=== PATIENT | female | born 1950 | race Caucasian/White ===

== ENCOUNTER → 2018-05-31 08:51 | Outpatient (CLI) | payer MEDICARE, OTHER, SELFPAY ==
[2018-05-31 10:11] LABS: BUN Creatinine Ratio 25.7 (6-22); Blood Urea Nitrogen 18 mg/dL (7-17); Calcium 9.3 mg/dL (8.4-10.2); Carbon Dioxide 30 mmol/L (22-32); Chloride 104 mmol/L (98-107); Cholesterol 217 mg/dL (140-199); Estimated Glomerular Filt Rate > 60.0 mL/min (>60); Glucose 102 mg/dL (80-110); HDL Cholesterol 77 mg/dL (40-60); HEMOLYSIS < 15 (0-50); LDL Cholesterol Calculated 126 mg/dL (<100); Potassium 4.7 mmol/L (3.4-5.1); Sodium 144 mmol/L (137-145); Triglycerides 70 mg/dL (35-150)
== END ==
PROVIDERS: PCP Family Medicine; Visit Provider Family Medicine
DX: R73.03 Prediabetes (principal); Z13.220 Encounter for screening for lipoid disorders; Z13.6 Encounter for screening for cardiovascular disorders
CPT/HCPCS: 36415; 80048; 80061

== ENCOUNTER → 2018-06-14 09:46 | Outpatient (CLI) | payer MEDICARE, OTHER, SELFPAY ==
--- NOTE | 2018-06-14 | DI.MG.S_ITS ---
BILATERAL DIGITAL SCREENING MAMMOGRAM 3D/2D WITH CAD: 06/14/2018 CLINICAL: Routine screening. Comparison is made to exams dated: 05/20/2017 mammogram, 05/15/2016 mammogram, and 05/09/2015 mammogram - [facility]. There are scattered fibroglandular elements in both breasts. Current study was also evaluated with a Computer Aided Detection (CAD) system. No significant masses, calcifications, or other findings are seen in either breast. There has been no significant interval change. IMPRESSION: NEGATIVE There is no mammographic evidence of malignancy. A 1 year screening mammogram is recommended. This exam was interpreted at Station ID: [id number]. NOTE: For mammograms, a report in lay terms will be sent to the patient. Approximately 15% of breast malignancies will not be visualized mammographically. In the management of a palpable breast mass, a negative mammogram must not discourage biopsy of a clinically suspicious lesion. Electronically Signed By: Stephen darling/jyothi:06/15/2018 08:13:44 letter sent: Normal Exam ACR BI-RADS Category 1: Negative 3341F
== END ==
PROVIDERS: Family Provider Family Medicine; PCP Family Medicine; Visit Provider Family Medicine
DX: Z12.31 Encounter for screening mammogram for malignant neoplasm of breast (principal)
CPT/HCPCS: 77063; 77067

== ENCOUNTER → 2019-01-09 20:02 | Outpatient (CLI) | payer MEDICARE, OTHER, SELFPAY ==
--- NOTE | 2019-01-09 20:06 | DI.MRI.S_ITS ---
PROCEDURE: MR ANKLE RT WO CON INDICATIONS: RIGHT ankle pain, suspect ligament injury or tendon tear TECHNIQUE: Noncontrast sagittal T1 spin echo and T2 fast spin echo with fat saturation, axial proton density fast spin echo and T2 fast spin echo with fat saturation, coronal T1 spin echo and T2 fast spin echo with fat saturation through the ankle/hindfoot. COMPARISON: None. FINDINGS: Image quality: Excellent. Bones and joints: No bone marrow contusions or fractures. Mild osteoarthritic changes are noted in ankle joints, and visualized midfoot and hindfoot joints. No hindfoot coalitions. No osteochondral injuries of the talar dome. No small amount of fluid within tibiotalar joint and subtalar joint is seen. No gross intra-articular loose body. Soft tissue swelling around ankle joint is seen particularly over lateral malleolus. Medial structures: The posterior tibialis, flexor digitorum longus, and flexor hallucis longus tendons are intact. The posterior tibial neurovascular bundle appears normal within the tarsal tunnel, without extrinsic mass effect. The deep layer (anterior and posterior tibiotalar ligaments) and superficial layer (tibionavicular, tibiospring, and tibiocalcaneal ligaments) of the deltoid ligament appear normal. There is suggestion of sprain and low-grade intrasubstance partial-thickness tear involving spring ligament complex. Lateral structures: There is thickening of anterior and posterior talofibular ligaments suggestive of ligamentous sprain. The calcaneofibular ligament appears intact. More superiorly, the anterior and posterior tibiofibular ligaments appear intact, as is the intermalleolar ligament. The tibiofibular syndesmosis is normal in width at 2 mm or less. The peroneus longus and brevis tendons demonstrate normal location and morphology. Adjacent bony peroneal tubercle and retrotrochlear prominence are normal in size. The sinus tarsi demonstrates normal fatty signal, without edema, fibrosis, or cyst formation. Visualized sinus tarsi components (cervical ligament, interosseous talocalcaneal ligament, roots of the inferior extensor retinaculum) appear normal. The calcaneonavicular and calcaneocuboid components of the bifurcate ligament appear intact. The dorsal calcaneocuboid ligament appears intact. Anterior structures: The tibialis anterior and extensor hallucis longus there is suggestion of tenosynovitis involving extensor digitorum longus tendon at the level of the anterior talus and talonavicular joint with thickening of tendon and moderate amount of fluid distending tendon sheaths. No evidence of extensor tendon tear. tendons appear intact. The dorsal talonavicular ligament appears intact. Posterior and plantar structures: Achilles tendon is intact. Medial and lateral bands of the plantar fascia are of normal thickness. No abductor digiti quinti muscle atrophy to suggest Nicole neuropathy. IMPRESSION: 1. Mild to moderate osteophytic changes throughout ankle joints, and visualized midfoot and hindfoot joints. No fracture or dislocation. Small to moderate amount of ankle joint effusion. No gross loose body. 2. Tenosynovitis involving extensor digitorum longus tendon. No evidence of ankle tendon tear. 3. Soft tissue swelling around ankle joint. Suggestion of sprain and low-grade intrasubstance partial-thickness involving spring ligament complex. Suggestion of sprain involving anterior and posterior talofibular ligaments. No full-thickness ligamentous rupture. Dictated by: Gasper Llamas M.D. on 01/10/2019 at 9:15 Approved by: Gasper Llamas M.D. on 01/10/2019 at 9:22
--- NOTE | 2019-01-09 20:06 | DI.MRI.S_ITS ---
PROCEDURE: MR SHOULDER LT WO CON INDICATIONS: shoulder pain, suspect tendon tear TECHNIQUE: Noncontrast oblique coronal T2 fast spin echo with fat saturation, oblique sagittal T1 spin echo and T2 fast spin echo with fat saturation, axial T1 spin echo and T2 fast spin echo with fat saturation through the shoulder. COMPARISON: None. FINDINGS: Image quality: Excellent. Rotator cuff: Tendinosis and low to moderate grade articular and bursal surface partial-thickness tear involving distal supraspinatus at its insertion on greater tuberosity of humeral head is seen extending to musculotendinous junction. Tendinosis and low-grade articular and bursal surface partial-thickness tear involving distal infraspinatus at its insertion the humeral head is also seen. There is tendinosis and low intrasubstance partial-thickness involving distal subscapularis. Sagittal images demonstrate mild supraspinatus muscle atrophy. Bones and bursae: No bone marrow contusions or fractures. Mild to moderate acromioclavicular joint osteoarthritis and mild glenohumeral joint osteoarthritis is seen. No pathologic subacromial-subdeltoid or subcoracoid bursal fluid is present. Capsule and soft tissues: In the absence of intra-articular contrast, there is suggestion of focal superior labral tear at 12 to 1:00 position. The glenohumeral ligaments appear intact. The long head of the biceps tendon demonstrates normal location and morphology. The rotator interval appears normal, without fibrosis. The coracohumeral ligament is normal in thickness. IMPRESSION: 1. Tendinosis and low to moderate grade articular and bursal surface partial-thickness tear involving distal supraspinatus and infraspinatus. Tendinosis and low-grade intrasubstance partial-thickness tear involving distal subscapularis. No full-thickness rotator cuff tendon rupture. Mild supraspinatus muscle atrophy. 2. Mild to moderate acromioclavicular joint and glenohumeral joint osteoarthritis. 3. Suggestion of focal superior anterior labral tear at 12 to 1:00 position. Dictated by: Gasper Llamas M.D. on 01/10/2019 at 8:17 Approved by: Gasper Llamas M.D. on 01/10/2019 at 8:20
== END ==
PROVIDERS: Family Provider Family Medicine; PCP Family Medicine; Visit Provider Family Medicine
DX: M75.112 Incomplete rotator cuff tear or rupture of left shoulder, not specified as traumatic (principal); M25.512 Pain in left shoulder; M19.012 Primary osteoarthritis, left shoulder; M25.571 Pain in right ankle and joints of right foot; M65.871 Other synovitis and tenosynovitis, right ankle and foot; M25.471 Effusion, right ankle; M25.771 Osteophyte, right ankle
CPT/HCPCS: 73221; 73721

== ENCOUNTER → 2019-03-31 08:56 | Outpatient (CLI) | payer MEDICARE, OTHER, SELFPAY ==
[2019-03-31 10:49] LABS: Alanine Aminotransferase 19 IU/L (9-52); Albumin 4.3 g/dL (3.5-5.0); Albumin Globulin Ratio 1.4 (1.0-2.8); Alkaline Phosphatase 59 U/L (38-126); Aspartate Aminotransferase 24 IU/L (14-36); BUN Creatinine Ratio 24.3 (6-22); Bilirubin Total 0.3 mg/dL (0.2-1.3); Blood Urea Nitrogen 17 mg/dL (7-17); Carbon Dioxide 29 mmol/L (22-32); Chloride 104 mmol/L (98-107); Cholesterol 188 mg/dL (140-199); Estimated Glomerular Filt Rate > 60.0 mL/min (>60); Globulin 3.1 g/dL (1.7-4.1); Glucose 95 mg/dL (80-110); HDL Cholesterol 61 mg/dL (40-60); HEMOLYSIS < 15 (0-50); LDL Cholesterol Calculated 117 mg/dL (<100); Potassium 4.7 mmol/L (3.4-5.1); Sodium 141 mmol/L (137-145); Total Protein 7.4 g/dL (6.3-8.2); Triglycerides 52 mg/dL (35-150)
== END ==
PROVIDERS: PCP Family Medicine; Visit Provider Family Medicine
DX: R73.03 Prediabetes (principal); E66.9 Obesity, unspecified
CPT/HCPCS: 36415; 80053; 80061

== ENCOUNTER → 2019-04-18 09:28 | Outpatient (CLI) | payer MEDICARE, OTHER, SELFPAY ==
[2019-04-18 10:16] LABS: Add Manual Diff / Slide Review NO; Basophils Absolute Auto 0 /uL (0-100); Basophils Percent Auto 0.9 % (0-2); Eosinophils Absolute Auto 100 /uL (0-450); Eosinophils Percent Auto 2.2 % (2-4); Hemoglobin 13.1 g/dL (12.0-16.0); Lymphocytes Absolute Auto 1900 /uL (1100-4500); Lymphocytes Percent Auto 37.9 % (25-40); Mean Corpuscular HGB Conc 34.4 % (30-36); Mean Corpuscular Hemoglobin 31.1 PG (26-34); Mean Corpuscular Volume 90.5 fL (80-100); Monocytes Absolute Auto 400 /uL (0-900); Monocytes Percent Auto 8.1 % (3-14); Neutrophils Absolute Auto 2500 /uL (1500-7000); Neutrophils Percent Auto 50.9 % (50-75); Platelet Count 255 X10^3/uL (150-400); Red Cell Distribution Width 14.1 % (11.6-14.8)
[2019-04-18 10:46] LABS: Erythrocyte Sedimentation Rate 31 MM/HR (0-20)
[2019-04-18 11:05] LABS: Vitamin D 25 Hydroxy (D3) 32.1 ng/mL (30.0-100.0)
[2019-04-18 11:29] LABS: C-Reactive Protein Quant < 0.5 mg/dL (<1.0)
[2019-04-18 11:54] LABS: TSH w/ Reflex to FT4 3.83 uIU/mL (0.47-4.68)
[2019-04-18 12:15] LABS: Vitamin B12 511 pg/mL (239-931)
[2019-04-19 14:18] LABS: RPR Screen Nonreactive (Nonreactive)
[2019-04-19 14:59] LABS: Free T3, Triiodothyronine Free 3.59 pg/mL (2.77-5.27); Free T4, Direct Thyroxine 1.01 ng/dL (0.78-2.19)
[2019-04-21 16:34] LABS: Methylmalonic Acid 168 nmol/L (87-318)
[2019-04-22 16:02] LABS: Thyroid Peroxidase Antibodies 2 IU/mL (< 9)
== END ==
PROVIDERS: PCP Family Medicine; Visit Provider Family Medicine
DX: G62.9 Polyneuropathy, unspecified (principal); M79.671 Pain in right foot; R20.8 Other disturbances of skin sensation; R26.9 Unspecified abnormalities of gait and mobility; I10 Essential (primary) hypertension; R94.6 Abnormal results of thyroid function studies; Z13.29 Encounter for screening for other suspected endocrine disorder
CPT/HCPCS: 36415; 82306; 82607; 83090; 83921; 84439; 84443; 84481; 85025; 85651; 86140; 86376; 86592

== ENCOUNTER → 2019-04-20 06:05 | Outpatient (CLI) | payer MEDICARE, OTHER, SELFPAY ==
--- NOTE | 2019-04-20 06:07 | DI.MRI.S_ITS ---
PROCEDURE: MR BRAIN (IAC) WWO CON INDICATIONS: ataxia, difficulty walking backwards, neck pain TECHNIQUE: Noncontrast sagittal T1 spin echo, axial FLAIR, axial gradient echo, axial diffusion and ADC through the brain. Axial thin-slice 3D CISS, coronal TruFISP, axial T1 spin echo with fat saturation through the internal auditory canals. After the administration of contrast, thin slice axial and coronal T1 spin echo with fat saturation through the internal auditory canals, and axial T1 spin echo with fat saturation through the brain. COMPARISON: None. FINDINGS: Image quality: Excellent. Cerebellopontine angles: No cerebellopontine angle masses. Inner ear structures appear normally formed. No suspicious enhancement in the internal auditory canal or along the course of the 7th cranial nerve. CSF spaces: Ventricles are normal in size and shape. No extra-axial fluid collections. Basal cisterns are patent. Brain: No intracranial bleeds or mass effects. Delaney-white matter interface is intact. No abnormal intracranial enhancement. Diffusion weighted images demonstrate no acute ischemic insults. Brainstem appears normal. Normal intravascular flow voids are present. Skull and face: Calvarial marrow signal is normal. Orbits appear normal. Sinuses: Sinuses and mastoids are clear. IMPRESSION: Normal for age, source of current symptoms is not seen. Dictated by: Angel Kaur M.D. on 04/20/2019 at 11:05 Approved by: Angel Kaur M.D. on 04/20/2019 at 11:05
--- NOTE | 2019-04-20 06:07 | DI.MRI.S_ITS ---
PROCEDURE: MR CERVICAL SPINE WO CON INDICATIONS: ataxia, difficulty walking backwards, neck pain TECHNIQUE: Noncontrast sagittal T1 spin echo and T2 fast spin echo, sagittal STIR, foraminal oblique sagittal T2 fast spin echo, and axial gradient echo or T2 fast spin echo through the cervical spine. COMPARISON: None. FINDINGS: Image quality: Excellent. Alignment and Curvature: There is normal bony alignment. Bone Marrow: Marrow demonstrates normal overall signal. Spinal Cord: Visualized spinal cord has normal size and signal. No cerebellar tonsillar herniation. Source of ataxia is not seen. Paraspinous Soft Tissues: No paravertebral masses. Prevertebral soft tissues are normal in thickness. C2-C3: Normal appearance. C3-C4: Normal appearance. C4-C5: Normal appearance. C5-C6: Mild degenerative disc disease, mild to moderate posterior transverse disc bulge effacing CSF from the anterior thecal sac, but not significantly distorting the adjacent anterior cord. The cord itself is not displaced posteriorly within the thecal sac as a result.. C6-C7: Normal appearance. C7-T1: Normal appearance. IMPRESSION: Mild degenerative disc disease producing effacement of CSF from the anterior thecal sac at the C5-6 disc level, without cord distortion or displacement. No intrinsic lesion within the cervical and upper thoracic cord is not found. A source of ataxia is not seen. Dictated by: Angel Kaur M.D. on 04/20/2019 at 11:03 Approved by: Angel Kaur M.D. on 04/20/2019 at 11:04
== END ==
PROVIDERS: PCP Family Medicine; Visit Provider Family Medicine
DX: R27.0 Ataxia, unspecified (principal); M54.2 Cervicalgia; M50.322 Other cervical disc degeneration at C5-C6 level
CPT/HCPCS: 70553; 72141; A9579

== ENCOUNTER → 2019-06-01 10:35 | Outpatient (CLI) | payer MEDICARE, OTHER, SELFPAY | PROVIDERS: PCP Family Medicine; Visit Provider Family Medicine | DX: M79.673 Pain in unspecified foot (principal); R27.0 Ataxia, unspecified | CPT/HCPCS: 95885; 95886; 95909 ==

== ENCOUNTER → 2019-06-12 15:02 | Outpatient (CLI) | payer MEDICARE, OTHER, SELFPAY ==
[2019-06-12 16:22] LABS: Rheumatoid Factor < 8.6 IU/mL (<12.0)
[2019-06-14 16:31] LABS: Anti Thyroglobulin Antibody < 1 IU/mL (< 2); Thyroid Peroxidase Antibodies 1 IU/mL (< 9)
[2019-06-14 19:06] LABS: ANA Screen, IFA Positive (Negative); ANA Titer 1:40 titer (<1:40)
[2019-06-15 11:53] LABS: CCP Antibody (IgG) < 16 Units (< 20)
== END ==
PROVIDERS: PCP Family Medicine; Visit Provider Family Medicine
DX: G62.9 Polyneuropathy, unspecified (principal); M79.671 Pain in right foot; R26.9 Unspecified abnormalities of gait and mobility; E03.9 Hypothyroidism, unspecified
CPT/HCPCS: 36415; 86038; 86200; 86376; 86430; 86800

== ENCOUNTER → 2019-06-19 11:57 | Outpatient (CLI) | payer MEDICARE, OTHER, SELFPAY ==
--- NOTE | 2019-06-19 | DI.MG.S_ITS ---
BILATERAL DIGITAL SCREENING MAMMOGRAM 3D/2D WITH CAD: 06/19/2019 CLINICAL: Routine screening. Comparison is made to exams dated: 06/14/2018 mammogram, 05/20/2017 mammogram, and 05/15/2016 mammogram - [facility]. There are scattered fibroglandular elements in both breasts. Current study was also evaluated with a Computer Aided Detection (CAD) system. No significant masses, calcifications, or other findings are seen in either breast. There has been no significant interval change. IMPRESSION: NEGATIVE There is no mammographic evidence of malignancy. A 1 year screening mammogram is recommended. This exam was interpreted at Station ID: [id number]. NOTE: For mammograms, a report in lay terms will be sent to the patient. Approximately 15% of breast malignancies will not be visualized mammographically. In the management of a palpable breast mass, a negative mammogram must not discourage biopsy of a clinically suspicious lesion. Electronically Signed By: Cedric summers/jyothi:06/19/2019 18:06:28 letter sent: Normal Exam ACR BI-RADS Category 1: Negative 3341F
== END ==
PROVIDERS: PCP Family Medicine; Visit Provider Family Medicine
DX: Z12.31 Encounter for screening mammogram for malignant neoplasm of breast (principal)
CPT/HCPCS: 77063; 77067

== ENCOUNTER → 2019-06-26 14:46 | Outpatient (CLI) | payer MEDICARE, OTHER, SELFPAY ==
[2019-06-26 15:19] LABS: Bacteria Urine None Seen; RBC Urine None Seen (0-5/HPF)
[2019-06-26 16:03] LABS: Appearance Urine UA CLEAR; Bilirubin Urine UA NEGATIVE (NEGATIVE); Color Urine UA YELLOW; Glucose Urine UA NEGATIVE (Negative); Ketones Urine UA NEGATIVE (NEGATIVE); Leukocyte Esterase Urine UA TRACE (NEGATIVE); Nitrite Urine UA NEGATIVE (Negative); Occult Blood Urine UA TRACE-LYSED (Negative); Protein Urine UA NEGATIVE (Negative); Specific Gravity Urine UA >=1.030 (1.000-1.035); Urobilinogen Urine UA 0.2 E.U./dL (0.2)
[2019-06-26 16:14] LABS: Squamous Epithelial Cell Urine 1-5 /HPF (0-5/HPF); WBC Urine 5-10/HPF (0-5/HPF)
[2019-06-26 16:15] LABS: Amorphous Sediment Urine 2+; Culture Indicated Urine Specimen Cultured; Mucus Urine 1+ (Negative)
== END ==
PROVIDERS: Physician Assistant; PCP Family Medicine; Visit Provider Family Medicine
DX: R39.89 Other symptoms and signs involving the genitourinary system (principal)
CPT/HCPCS: 81001; 87086

== ENCOUNTER → 2019-07-11 15:11 | Outpatient (CLI) | payer MEDICARE, OTHER, SELFPAY | PROVIDERS: PCP Family Medicine; Visit Provider Family Medicine | DX: M85.80 Other specified disorders of bone density and structure, unspecified site (principal) | CPT/HCPCS: 77080 ==

== ENCOUNTER → 2019-11-23 11:01 | Outpatient (CLI) | payer MEDICARE, OTHER, SELFPAY ==
[2019-11-23 12:13] LABS: Add Manual Diff / Slide Review NO; Basophils Absolute Auto 0 /uL (0-100); Basophils Percent Auto 0.9 % (0-2); Eosinophils Absolute Auto 100 /uL (0-450); Eosinophils Percent Auto 1.5 % (2-4); Hematocrit 41.2 % (36-46); Lymphocytes Absolute Auto 1600 /uL (1100-4500); Lymphocytes Percent Auto 29.3 % (25-40); Mean Corpuscular HGB Conc 33.9 % (30-36); Mean Corpuscular Hemoglobin 30.7 PG (26-34); Mean Corpuscular Volume 90.5 fL (80-100); Monocytes Absolute Auto 500 /uL (0-900); Monocytes Percent Auto 9.8 % (3-14); Neutrophils Absolute Auto 3200 /uL (1500-7000); Neutrophils Percent Auto 58.5 % (50-75); Platelet Count 260 X10^3/uL (150-400); Red Blood Cell Count 4.55 X10^6/uL (4.0-5.2); Red Cell Distribution Width 13.2 % (11.6-14.8); White Blood Cell Count 5.4 X10^3/uL (4.5-11.0)
[2019-11-23 12:44] LABS: Alanine Aminotransferase 6 IU/L (<35); Albumin 4.6 g/dL (3.5-5.0); Albumin Globulin Ratio 1.5 (1.0-2.8); Alkaline Phosphatase 72 U/L (38-126); Aspartate Aminotransferase 33 IU/L (14-36); BUN Creatinine Ratio 22.9 (6-22); Bilirubin Total 0.4 mg/dL (0.2-1.3); Blood Urea Nitrogen 16 mg/dL (7-17); Calcium 9.4 mg/dL (8.4-10.2); Carbon Dioxide 28 mmol/L (22-32); Chloride 103 mmol/L (98-107); Estimated Glomerular Filt Rate > 60.0 mL/min (>60); Glucose 87 mg/dL (80-110); HEMOLYSIS 18 (0-50); Potassium 4.6 mmol/L (3.4-5.1); Sodium 140 mmol/L (137-145); Total Protein 7.6 g/dL (6.3-8.2)
== END ==
PROVIDERS: PCP Family Medicine; Visit Provider Family Medicine
DX: G20 Parkinson's disease (principal); E66.9 Obesity, unspecified; R73.03 Prediabetes
CPT/HCPCS: 36415; 80053; 85025

== ENCOUNTER 2020-01-25 10:30 | Outpatient (RCR) | payer MEDICARE, OTHER, SELFPAY ==
--- NOTE | 2020-01-17 11:31 | PT.OIE ---
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) Endometriosis (Acute ~1976) Foot pain (Acute ~2013) Iliotibial band syndrome affecting right lower leg (Inactive 04/02/16) Measles (Acute) Mumps (Acute) Obesity (Acute) Osteopenia (Chronic 06/25/16) Restless leg syndrome (Acute) Rotavirus infection (Resolved) Seasonal allergies (Acute ~1959) Seborrheic keratosis (Chronic 03/14/14) Tinnitus (Acute) Past Surgical History (Last Updated 06/10/18 @ 11:55 by Jana Quintanilla) Anesthesia (Inactive) Status post colonoscopy (01/14/07) Status post laparotomy Visit Care Team Role Provider Type Isabelle Rosales DO Attending Provider Physician Primary Care Provider Referring Provider Specialty: [facility] Address: [address] [place] [address], [address], [facility] Email: [email or web address] Physical Therapy Initial Evaluation PT-OP-A Visit Information Start: 01/16/20 13:04 Freq: Status: Active Protocol: Document 01/16/20 13:00 COUNTS INCLUDE 234 BEDS AT THE [facility] (Rec: 01/17/20 11:29 COUNTS INCLUDE 234 BEDS AT THE [facility] [id number]) Out-Patient Physical Therapy Visit Information Visit Information Visit Type Initial Evaluation Visit Note Marcellus is a 69 year old female with pelvic floor weakness, urinary urgency, leakage and fecal soiling Visit Start Time 13:00 Visit Stop Time 13:45 Total Visit Minutes 45 Visit Number 1 Evaluation Information Evaluation Date 01/16/20 PT-OP-B Current Condition Start: 01/16/20 13:04 Freq: Status: Active Protocol: Document 01/16/20 13:04 COUNTS INCLUDE 234 BEDS AT THE [facility] (Rec: 01/16/20 13:16 COUNTS INCLUDE 234 BEDS AT THE [facility] [id number]) Current Condition History of Current Condition Onset Date 2-3 years ago Current Complaints urinary and fecal leakage History of Current Condition Pt reports frequent urgency to void during the day. At times she can go up to 3 times per hour. She does note that while attempting to void if she sits for a while she will go more. She reports being diagnosed with parkinsons last June and started taking Levadopa at the same time. She recently began a extended release levodopa 200 mg and this has helped her to only wake up one time per night to void. Drinks a great deal of water and is getting in 8- 10 glasses per day. When she walks [facility] she has to stop to void. Also leaks with sneezing and positional changes. At times has bowel soilage. She will always clean her rectal sphincter when she voids. She denies any complaints of pelvic heaviness or pressure Treatment Goals Patient/Caregiver Goals Treatment goals include improving urinary continence and decreasing urgency. Pt would also like to improve rectal sphincter control Prior Functional Status Baseline Function- ADL's Independent Baseline Function- Mobility Independent Current Functional Impairments (Reported) Functional Limitations- Mobility/Gait limitations with walking distance due to frequency with voiding and urgency PT-OP-F Manual Assessment Start: 01/16/20 13:04 Freq: Status: Active Protocol: Document 01/16/20 13:00 COUNTS INCLUDE 234 BEDS AT THE [facility] (Rec: 01/17/20 11:29 COUNTS INCLUDE 234 BEDS AT THE [facility] [id number]) Manual Assessments Soft Tissue Assessment Soft Tissue Mobility Assessment there is some myofascial tightness in the abdominal wall and suprapubic fascia surrounding the bladder PT-OP-I Pelvic Floor Start: 01/16/20 13:04 Freq: Status: Active Protocol: Document 01/16/20 13:00 COUNTS INCLUDE 234 BEDS AT THE [facility] (Rec: 01/17/20 11:29 COUNTS INCLUDE 234 BEDS AT THE [facility] [id number]) Pelvic Floor Assessment Urine Pelvic Floor Surgery No Urinary Symptoms Urge Sensation Other Urinary Symptoms frequency urgency to void, urinary leakage with light activity, strong urge to void and walking to the toilet Leakage Size Medium Leakage Cause Exercise,Urge Leaks Per Day 2 Voiding Frequency very frequently and at times 3 per hour Nocturia yes 1-3 xms Pads Used In 24 Hours 3 Urine Pad Type Panty Liner Pelvic Clock Pelvic Clock 12-3 Atrophy Pelvic Clock 3-6 Atrophy Pelvic Clock 6-9 Atrophy Pelvic Clock 9-12 Atrophy Prolapse Uterine Prolapse Grade 1 Cystocele Grade 1 SEMG (uV) Baseline 2.8 10 Second Contraction 10 Recruitment Pattern Fair Relaxation Poor/Slow Holding Fair Stability of Hold Fair SEMG Stability of Rest Poor/Slow Contraction Ability Voluntary Contraction Weak Voluntary Relaxation Weak Manual Muscle Testing Left 2 Manual Muscle Testing Right 3 Manual Muscle Testing Anterior 2 Manual Muscle Testing Posterior 1 Muscle Endurance (Seconds) 6 Comments Pelvic Floor Comments pt had difficulty with any contraction from the posterior wall but with cuing was able to facilitate . She was able to contract the right lateral wall but had difficult with the left. PT-OP-M Strength Start: 01/16/20 13:04 Freq: Status: Active Protocol: Document 01/16/20 13:00 COUNTS INCLUDE 234 BEDS AT THE [facility] (Rec: 01/17/20 11:29 COUNTS INCLUDE 234 BEDS AT THE [facility] [id number]) Trunk Strength Trunk Manual Muscle Testing Testing Position Supine Flexion 3 Fair Core Stabilization Decreased stabilization from the transverse abdominal musculature difficulty facilitating the transverse abdominal muscles PT-OP-Q Treatments Start: 01/16/20 13:04 Freq: Status: Active Protocol: Document 01/16/20 13:00 COUNTS INCLUDE 234 BEDS AT THE [facility] (Rec: 01/17/20 11:29 COUNTS INCLUDE 234 BEDS AT THE [facility] [id number]) Therapeutic Exercises Supine Exercises Pelvic floor long holds Supine Exercise Name Pelvic floor long holds Side bilateral Equipment Used EMG biofeedback Reps/Minutes 10 second hold and 10 second relaxation Comments EMG biofeedback was used as a assit to facilitate the pelvic floor PT-OP-T Assessment and Plan Start: 01/16/20 13:04 Freq: Status: Active Protocol: Document 01/16/20 13:00 COUNTS INCLUDE 234 BEDS AT THE [facility] (Rec: 01/17/20 11:29 COUNTS INCLUDE 234 BEDS AT THE [facility] [id number]) Physical Therapy Assessment Rehab Potential Rehabilitation Potential Excellent Evaluation Complexity Number of Personal Factors/Comorbidities 0 Number of Body Systems Impaired 1-2 Clinical Presentation at Evaluation Stable Impairments Impairments Activity Tolerance,Functional Activities,Soft Tissue Mobility,Strength,Tone Goals Three Impairment Decreased endurance of the pelvic floor musculature [facility] Goal (LTG) Marcellus is able to sustain a contraction of the pelvic floor for 10 seconds in supine and 5-10 seconds in a standing position for improved slow twitch muscle contraction ability Two Impairment weakness of the levator ani musculature [facility] Goal (LTG) Improve strength of all areas of the levator ani musculature to 3/5 MMT or better for improved support of the bladder and rectum LTG Duration 8 weeks One Impairment Urinary urgency voiding up to 3 times per hour Short Term Goal (STG) Marcellus is educated in toileting strategies and urge deference technique to improve voiding ability to fully empty her bladder and reduce urgency STG Duration 2 weeks [employer] Goal (LTG) Ori is able to reduce her urgency and void 1 time every 1 1/2 to 2 hours LTG Duration 8 weeks Assessment Summary Assessment Ori is a 70 year old female referred to Physical therapy due to complaints of urinary leakage, frequency urgency to void, and fecal soilage. Her symptoms have been worsening over the past 2 -3 years. She has parkinsons disease and recently had a increase in her levadopa with extended release which she feels is helping her to sleep better. She is still waking 1 -3 times per night to void. She notes frequent urgency to void throughout the day sometimes up to 3 times per hour. Marcellus states that every times she voids she will wipe her rectal region as well as she will often have fecal soilage. She likes to walk the [employer] road for exercise but notes she has to stop midway through due urgency. She does leak with light activity as well but her chief c/o leakage with with urgency. With examination today marcellus has the greatest difficulty with brady the posterior wall of the levator ani. She test 1/5 MMT posterior wall, 2/5 left lateral wall, 3/5 right lateral wall, and 2/5 anterior wall. She has difficulty with endurance of the levator ani and can hold approximatly 6 seconds in supine. There is some myofascial restrictions across the anterior abdominal fascia and suprapubic region surrounding the bladder. Along with strengthening the pelvic floor Marcellus may also benefit from MFR and stretches for the abdominal wall. She educated in bladder retraining today as well as starting EMG biofeedback for improved pelvic floor facilitation which she tolerated well. Marcellus is a good candidate for PT Physical Therapy Plan Frequency and Duration Frequency of Treatment 1x/Week Duration of Treatment 8 Plan of Care Start Date 01/16/20 Plan of Care End Date 03/12/20 Therapeutic Interventions Therapeutic Interventions Home Exercise Program,Manual Therapy,Neuromuscular Re- education,Patient/Caregiver Education,Self-Care/Home Management,Soft Tissue Mobilization,Therapeutic Exercises Modalities Biofeedback Next Visit Focus/Plan Next Note Type Treatment Note Next Visit Plan EMG biofeedback for improved facilitation of the pelvic floor, endurance training of the pelvic floor, begin stretches for the abdominal wall, review urge deference technique
--- NOTE | 2020-01-17 11:32 | PT.OPPOC ---
Physical, Occupational & Speech Therapy At [facility] Current Diagnoses Other specified disorders of muscle (01/16/20) Urge incontinence (01/16/20) Urgency of urination (01/16/20) Visit Care Team Role Provider Type Isabelle Rosales DO Attending Provider Physician Primary Care Provider Referring Provider Specialty: Family Practice Address: [address] [place] [address], [address], [facility] Email: [email or web address] Plan Of Care PT-OP-T Assessment and Plan Start: 01/16/20 13:04 Freq: Status: Active Protocol: Document 01/16/20 13:00 [facility] (Rec: 01/17/20 11:29 [facility] [id number]) Physical Therapy Assessment Rehab Potential Rehabilitation Potential Excellent Evaluation Complexity Number of Personal Factors/Comorbidities 0 Number of Body Systems Impaired 1-2 Clinical Presentation at Evaluation Stable Impairments Impairments Activity Tolerance,Functional Activities,Soft Tissue Mobility,Strength,Tone Goals Three Impairment Decreased endurance of the pelvic floor musculature [employer] Research Technician Goal (LTG) Faustina is able to sustain a contraction of the pelvic floor for 10 seconds in supine and 5-10 seconds in a standing position for improved slow twitch muscle contraction ability Two Impairment weakness of the levator ani musculature Longterm Goal (LTG) Improve strength of all areas of the levator ani musculature to 3/5 MMT or better for improved support of the bladder and rectum LTG Duration 8 weeks One Impairment Urinary urgency voiding up to 3 times per hour Short Term Goal (STG) Faustina is educated in toileting strategies and urge deference technique to improve voiding ability to fully empty her bladder and reduce urgency STG Duration 2 weeks Longterm Goal (LTG) Faustina is able to reduce her urgency and void 1 time every 1 1/2 to 2 hours LTG Duration 8 weeks Assessment Summary Assessment Faustina is a 70 year old female referred to Physical therapy due to complaints of urinary leakage, frequency urgency to void, and fecal soilage. Her symptoms have been worsening over the past 2 -3 years. She has parkinsons disease and recently had a increase in her levadopa with extended release which she feels is helping her to sleep better. She is still waking 1 -3 times per night to void. She notes frequent urgency to void throughout the day sometimes up to 3 times per hour. Faustina states that every times she voids she will wipe her rectal region as well as she will often have fecal soilage. She likes to walk [place] [address] for exercise but notes she has to stop midway through due urgency. She does leak with light activity as well but her chief c/o leakage with with urgency. With examination today Faustina has the greatest difficulty with brady the posterior wall of the levator ani. She test 1/5 MMT posterior wall, 2/5 left lateral wall, 3/5 right lateral wall, and 2/5 anterior wall. She has difficulty with endurance of the levator ani and can hold approximately 6 seconds in supine. There is some myofascial restrictions across the anterior abdominal fascia and suprapubic region surrounding the bladder. Along with strengthening the pelvic floor Faustina may also benefit from MFR and stretches for the abdominal wall. She educated in bladder retraining today as well as starting EMG biofeedback for improved pelvic floor facilitation which she tolerated well. Faustina is a good candidate for PT Physical Therapy Plan Frequency and Duration Frequency of Treatment 1x/Week Duration of Treatment 8 Plan of Care Start Date 01/16/20 Plan of Care End Date 03/12/20 Therapeutic Interventions Therapeutic Interventions Home Exercise Program,Manual Therapy,Neuromuscular Re- education,Patient/Caregiver Education,Self-Care/Home Management,Soft Tissue Mobilization,Therapeutic Exercises Modalities Biofeedback Next Visit Focus/Plan Next Note Type Treatment Note Next Visit Plan EMG biofeedback for improved facilitation of the pelvic floor, endurance training of the pelvic floor, begin stretches for the abdominal wall, review urge deference technique Plan of Care Dates Plan of Care Start Date 01/16/20 Plan of Care End Date 03/12/20 Electronically Signed by: Aliyah Tran, PT 01/17/20 [id number] Please Sign and Return: I have reviewed this Plan of Care and certify that the skilled therapy services above are required to meet the patient?s needs. Physician Signature Date Printed Name and Credentials Clinical Instructor Signature Printed Name and Credentials
--- NOTE | 2020-01-18 12:13 | PT.OTN ---
Current Diagnoses Other specified disorders of muscle (01/18/20) Urge incontinence (01/18/20) Urgency of urination (01/18/20) Physical Therapy Treatment Note PT-OP-A Visit Information Start: 01/16/20 13:04 Freq: Status: Active Protocol: Document 01/18/20 11:21 [facility] (Rec: 01/18/20 12:11 [facility] [id number]) Out-Patient Physical Therapy Visit Information Visit Information Visit Type Treatment Note Visit Start Time 11:15 Visit Stop Time 12:00 Total Visit Minutes 45 Visit Number 2 PT-OP-B Current Condition Start: 01/16/20 13:04 Freq: Status: Active Protocol: Document 01/16/20 13:04 [facility] (Rec: 01/16/20 13:16 [facility] [id number]) Current Condition History of Current Condition Onset Date 2-3 years ago Current Complaints urinary and fecal leakage History of Current Condition Pt reports frequent urgency to void during the day. At times she can go up to 3 times per hour. She does note that while attempting to void if she sits for a while she will go more. SHe reports being diagnosed with parkinsons last June and started taking Levadopa at the same time. She recently began a extended release levodopa 200 mg and this has helped her to only wake up one time per night to void. Drinks a great deal of water and is getting in 8- 10 glasses per day. When she walks [facility] she has to stop to void. Also leaks with sneezing and positional changes. At times has bowel soilage. She will always clean her rectal sphincter when she voids. She denies any complaints of pelvic heaviness or pressure Treatment Goals Patient/Caregiver Goals Treatment goals include improving urinary continence and decreasing urgency. Pt would also like to improve rectal sphincter control Prior Functional Status Baseline Function- ADL's Independent Baseline Function- Mobility Independent Current Functional Impairments (Reported) Functional Limitations- Mobility/Gait limitations with walking distance due to frequency with voiding and urgency PT-OP-C Subjective Start: 01/16/20 13:04 Freq: Status: Active Protocol: Document 01/18/20 11:21 [facility] (Rec: 01/18/20 12:11 [facility] [id number]) OP-PT Subjective Patient Comments Patient Comments pt reports she has been working on her urge deference technique and it is helping PT-OP-F Manual Assessment Start: 01/16/20 13:04 Freq: Status: Active Protocol: Document 01/16/20 13:00 [facility] (Rec: 01/17/20 11:29 [facility] [id number]) Manual Assessments Soft Tissue Assessment Soft Tissue Mobility Assessment there is some myofascial tightness in the abdominal wall and suprapubic fascia surrounding the bladder PT-OP-I Pelvic Floor Start: 01/16/20 13:04 Freq: Status: Active Protocol: Document 01/16/20 13:00 [facility] (Rec: 01/17/20 11:29 [facility] [id number]) Pelvic Floor Assessment Urine Pelvic Floor Surgery No Urinary Symptoms Urge Sensation Other Urinary Symptoms frequency urgency to void, urinary leakage with light activity, strong urge to void and walking to the toilet Leakage Size Medium Leakage Cause Exercise,Urge Leaks Per Day 2 Voiding Frequency very frequencly and at times 3 per hour Nocturia yes 1-3 xms Pads Used In 24 Hours 3 Urine Pad Type Panty Liner Pelvic Clock Pelvic Clock 12-3 Atrophy Pelvic Clock 3-6 Atrophy Pelvic Clock 6-9 Atrophy Pelvic Clock 9-12 Atrophy Prolapse Uterine Prolapse Grade 1 Cystocele Grade 1 SEMG (uV) Baseline 2.8 10 Second Contraction 10 Recruitment Pattern Fair Relaxation Poor/Slow Holding Fair Stability of Hold Fair SEMG Stability of Rest Poor/Slow Contraction Ability Voluntary Contraction Weak Voluntary Relaxation Weak Manual Muscle Testing Left 2 Manual Muscle Testing Right 3 Manual Muscle Testing Anterior 2 Manual Muscle Testing Posterior 1 Muscle Endurance (Seconds) 6 Comments Pelvic Floor Comments pt had difficulty with any contraction from the posterior wall but with cuing was able to facilitate . She was able to contract the right lateral wall but had difficult with the left. PT-OP-M Strength Start: 01/16/20 13:04 Freq: Status: Active Protocol: Document 01/16/20 13:00 [facility] (Rec: 01/17/20 11:29 [facility] [id number]) Trunk Strength Trunk Manual Muscle Testing Testing Position Supine Flexion 3 Fair Core Stabilization Decreased stabilization from the transverse abdominal musculature difficulty facilitating the transverse abdominal muscles PT-OP-Q Treatments Start: 01/16/20 13:04 Freq: Status: Active Protocol: Document 01/18/20 11:21 [facility] (Rec: 01/18/20 12:11 [facility] [id number]) Therapeutic Exercises Supine Exercises 3 Supine Exercise Name roll outs with theraband Reps/Minutes 2 x 10 reps 2 Supine Exercise Name quick pelvic floor contractions Reps/Minutes x 10 reps 1 Supine Exercise Name diaphragmatic breathing Comments inhale 4 counts exhale 4 coulnts withTA assist Pelvic floor long holds Supine Exercise Name Pelvic floor long holds Side bilateral Equipment Used EMG biofeedback Reps/Minutes 10 second hold and 10 second relaxation Comments EMG biofeedback was used as a assit to facilitate the pelvic floor Prone Exercises 1 Prone Exercise Name prone cobra stretch Comments with alternating knee bend PT-OP-T Assessment and Plan Start: 01/16/20 13:04 Freq: Status: Active Protocol: Document 01/18/20 12:12 [facility] (Rec: 01/18/20 12:13 [facility] [id number]) Physical Therapy Assessment Assessment Summary Assessment worked a lot today on diaphragmatic breathing and relaxation of the upper abdominal wall. Faustina was able to fully relax the pelvic floor to baseline today on EMG biofeedback Physical Therapy Plan Next Visit Focus/Plan Next Note Type Treatment Note Next Visit Plan review all exercises, begin templates for eccentric control and stabilization
--- NOTE | 2020-01-23 12:08 | PT.OTN ---
Current Diagnoses Other specified disorders of muscle (01/23/20) Urge incontinence (01/23/20) Urgency of urination (01/23/20) Physical Therapy Treatment Note PT-OP-A Visit Information Start: 01/16/20 13:04 Freq: Status: Active Protocol: Document 01/23/20 11:25 [facility] (Rec: 01/23/20 12:08 [facility] [id number]) Out-Patient Physical Therapy Visit Information Visit Information Visit Type Treatment Note Visit Start Time 11:20 Visit Stop Time 12:00 Total Visit Minutes 40 Visit Number 3 Evaluation Information Evaluation Date 01/16/20 PT-OP-B Current Condition Start: 01/16/20 13:04 Freq: Status: Active Protocol: Document 01/16/20 13:04 [facility] (Rec: 01/16/20 13:16 [facility] [id number]) Current Condition History of Current Condition Onset Date 2-3 years ago Current Complaints urinary and fecal leakage History of Current Condition Pt reports frequent urgency to void during the day. At times she can go up to 3 times per hour. She does note that while attempting to void if she sits for a while she will go more. SHe reports being diagnosed with parkinsons last June and started taking Levadopa at the same time. She recently began a extended release levodopa 200 mg and this has helped her to only wake up one time per night to void. Drinks a great deal of water and is getting in 8- 10 glasses per day. When she walks [facility] she has to stop to void. Also leaks with sneezing and positional changes. At times has bowel soilage. She will always clean her rectal sphincter when she voids. She denies any complaints of pelvic heaviness or pressure Treatment Goals Patient/Caregiver Goals Treatment goals include improving urinary continence and decreasing urgency. Pt would also like to improve rectal sphincter control Prior Functional Status Baseline Function- ADL's Independent Baseline Function- Mobility Independent Current Functional Impairments (Reported) Functional Limitations- Mobility/Gait limitations with walking distance due to frequency with voiding and urgency PT-OP-C Subjective Start: 01/16/20 13:04 Freq: Status: Active Protocol: Document 01/23/20 11:25 [facility] (Rec: 01/23/20 12:08 [facility] [id number]) OP-PT Subjective Patient Comments Patient Comments Has been working on the urge technique, only had two times when she had to quickly had to get her pants off. Not as much of the leakage. Faustina is traveling to [place] next week so is wanting to use her urge technique then. PT-OP-F Manual Assessment Start: 01/16/20 13:04 Freq: Status: Active Protocol: Document 01/16/20 13:00 [facility] (Rec: 01/17/20 11:29 [facility] [id number]) Manual Assessments Soft Tissue Assessment Soft Tissue Mobility Assessment there is some myofascial tightness in the abdominal wall and suprapubic fascia surrounding the bladder PT-OP-I Pelvic Floor Start: 01/16/20 13:04 Freq: Status: Active Protocol: Document 01/16/20 13:00 [facility] (Rec: 01/17/20 11:29 [id number] Pelvic Floor Assessment Urine Pelvic Floor Surgery No Urinary Symptoms Urge Sensation Other Urinary Symptoms frequency urgency to void, urinary leakage with light activity, strong urge to void and walking to the toilet Leakage Size Medium Leakage Cause Exercise,Urge Leaks Per Day 2 Voiding Frequency very frequencly and at times 3 per hour Nocturia yes 1-3 xms Pads Used In 24 Hours 3 Urine Pad Type Panty Liner Pelvic Clock Pelvic Clock 12-3 Atrophy Pelvic Clock 3-6 Atrophy Pelvic Clock 6-9 Atrophy Pelvic Clock 9-12 Atrophy Prolapse Uterine Prolapse Grade 1 Cystocele Grade 1 SEMG (uV) Baseline 2.8 10 Second Contraction 10 Recruitment Pattern Fair Relaxation Poor/Slow Holding Fair Stability of Hold Fair SEMG Stability of Rest Poor/Slow Contraction Ability Voluntary Contraction Weak Voluntary Relaxation Weak Manual Muscle Testing Left 2 Manual Muscle Testing Right 3 Manual Muscle Testing Anterior 2 Manual Muscle Testing Posterior 1 Muscle Endurance (Seconds) 6 Comments Pelvic Floor Comments pt had difficulty with any contraction from the posterior wall but with cuing was able to facilitate . She was able to contract the right lateral wall but had difficult with the left. PT-OP-M Strength Start: 01/16/20 13:04 Freq: Status: Active Protocol: Document 01/16/20 13:00 [facility] (Rec: 01/17/20 11:29 [facility] [id number]) Trunk Strength Trunk Manual Muscle Testing Testing Position Supine Flexion 3 Fair Core Stabilization Decreased stabilization from the transverse abdominal musculature difficulty facilitating the transverse abdominal muscles PT-OP-Q Treatments Start: 01/16/20 13:04 Freq: Status: Active Protocol: Document 03/03/20 11:25 [facility] (Rec: 01/23/20 12:08 [facility] [id number]) Therapeutic Exercises Supine Exercises 3 Supine Exercise Name roll outs with theraband Reps/Minutes 2 x 10 reps 2 Supine Exercise Name quick pelvic floor contractions Reps/Minutes x 10 reps 1 Supine Exercise Name diaphragmatic breathing Comments inhale 4 counts exhale 4 coulnts withTA assist Pelvic floor long holds Supine Exercise Name Pelvic floor long holds Side bilateral Equipment Used no biofeeback today Reps/Minutes 10 second hold and 10 second relaxation Prone Exercises 1 Prone Exercise Name prone cobra stretch Comments with alternating knee bend PT-OP-T Assessment and Plan Start: 01/16/20 13:04 Freq: Status: Active Protocol: Document 01/23/20 11:25 [facility] (Rec: 01/23/20 12:08 [facility] [id number]) Physical Therapy Assessment Assessment Summary Assessment pt will be gone after next week until march 03. She would benefit from scheduling 1-2 visits upon her return Physical Therapy Plan Frequency and Duration Frequency of Treatment 1x/Week Duration of Treatment 8 Plan of Care Start Date 01/16/20 Plan of Care End Date 03/12/20 Therapeutic Interventions Therapeutic Interventions Home Exercise Program,Manual Therapy,Neuromuscular Re- education,Patient/Caregiver Education,Self-Care/Home Management,Soft Tissue Mobilization,Therapeutic Exercises Modalities Biofeedback Next Visit Focus/Plan Next Note Type Treatment Note Next Visit Plan pt will bring her electrode on and all exercises will be reviewed prior to her being out of town for a month.
--- NOTE | 2020-01-25 12:54 | PT.OTN ---
Current Diagnoses Other specified disorders of muscle (01/25/20) Urge incontinence (01/25/20) Urgency of urination (01/25/20) Physical Therapy Treatment Note PT-OP-A Visit Information Start: 01/16/20 13:04 Freq: Status: Active Protocol: Document 01/25/20 10:37 ON LICENSE OF [facility] (Rec: 01/25/20 12:54 ON LICENSE OF [facility] [id number]) Out-Patient Physical Therapy Visit Information Visit Information Visit Type Treatment Note Visit Start Time 10:35 Visit Stop Time 11:15 Total Visit Minutes 40 Visit Number 4 PT-OP-B Current Condition Start: 01/16/20 13:04 Freq: Status: Active Protocol: Document 01/16/20 13:04 [facility] (Rec: 01/16/20 13:16 ON LICENSE OF [facility] [id number]) Current Condition History of Current Condition Onset Date 2-3 years ago Current Complaints urinary and fecal leakage History of Current Condition Pt reports frequent urgency to void during the day. At times she can go up to 3 times per hour. She does note that while attempting to void if she sits for a while she will go more. SHe reports being diagnosed with parkinsons last June and started taking Levadopa at the same time. She recently began a extended release levodopa 200 mg and this has helped her to only wake up one time per night to void. Drinks a great deal of water and is getting in 8- 10 glasses per day. When she walks [facility] she has to stop to void. Also leaks with sneezing and positional changes. At times has bowel soilage. She will always clean her rectal sphincter when she voids. She denies any complaints of pelvic heaviness or pressure Treatment Goals Patient/Caregiver Goals Treatment goals include improving urinary continence and decreasing urgency. Pt would also like to improve rectal sphincter control Prior Functional Status Baseline Function- ADL's Independent Baseline Function- Mobility Independent Current Functional Impairments (Reported) Functional Limitations- Mobility/Gait limitations with walking distance due to frequency with voiding and urgency PT-OP-C Subjective Start: 01/16/20 13:04 Freq: Status: Active Protocol: Document 01/25/20 10:37 ON LICENSE OF [facility] (Rec: 01/25/20 12:54 ON LICENSE OF [facility] [id number]) OP-PT Subjective Patient Comments Patient Comments Doing much better and able to urge technique, leakage is so much better, still a little fecal soiling. She doesn't even get up in the night any more. PT-OP-F Manual Assessment Start: 01/16/20 13:04 Freq: Status: Active Protocol: Document 01/16/20 13:00 ON LICENSE OF [facility] (Rec: 01/17/20 11:29 ON LICENSE OF [facility] [id number]) Manual Assessments Soft Tissue Assessment Soft Tissue Mobility Assessment there is some myofascial tightness in the abdominal wall and suprapubic fascia surrounding the bladder PT-OP-I Pelvic Floor Start: 01/16/20 13:04 Freq: Status: Active Protocol: Document 01/16/20 13:00 [facility] (Rec: 01/17/20 11:29 ON LICENSE OF [facility] [id number]) Pelvic Floor Assessment Urine Pelvic Floor Surgery No Urinary Symptoms Urge Sensation Other Urinary Symptoms frequency urgency to void, urinary leakage with light activity, strong urge to void and walking to the toilet Leakage Size Medium Leakage Cause Exercise,Urge Leaks Per Day 2 Voiding Frequency very frequencly and at times 3 per hour Nocturia yes 1-3 xms Pads Used In 24 Hours 3 Urine Pad Type Panty Liner Pelvic Clock Pelvic Clock 12-3 Atrophy Pelvic Clock 3-6 Atrophy Pelvic Clock 6-9 Atrophy Pelvic Clock 9-12 Atrophy Prolapse Uterine Prolapse Grade 1 Cystocele Grade 1 SEMG (uV) Baseline 2.8 10 Second Contraction 10 Recruitment Pattern Fair Relaxation Poor/Slow Holding Fair Stability of Hold Fair SEMG Stability of Rest Poor/Slow Contraction Ability Voluntary Contraction Weak Voluntary Relaxation Weak Manual Muscle Testing Left 2 Manual Muscle Testing Right 3 Manual Muscle Testing Anterior 2 Manual Muscle Testing Posterior 1 Muscle Endurance (Seconds) 6 Comments Pelvic Floor Comments pt had difficulty with any contraction from the posterior wall but with cuing was able to facilitate . She was able to contract the right lateral wall but had difficult with the left. PT-OP-M Strength Start: 01/16/20 13:04 Freq: Status: Active Protocol: Document 01/16/20 13:00 ON LICENSE OF [facility] (Rec: 01/17/20 11:29 ON LICENSE OF [facility] [id number]) Trunk Strength Trunk Manual Muscle Testing Testing Position Supine Flexion 3 Fair Core Stabilization Decreased stabilization from the transverse abdominal musculature difficulty facilitating the transverse abdominal muscles PT-OP-Q Treatments Start: 01/16/20 13:04 Freq: Status: Active Protocol: Document 01/25/20 10:37 ON LICENSE OF [facility] (Rec: 01/25/20 12:54 ON LICENSE OF [facility] [id number]) Therapeutic Exercises Supine Exercises 4 Supine Exercise Name bridges with ball squeeze Reps/Minutes x 10 reps Comments with pelvic floor activation 3 Supine Exercise Name roll outs with theraband Reps/Minutes 2 x 10 reps 2 Supine Exercise Name quick pelvic floor contractions Reps/Minutes x 10 reps 1 Supine Exercise Name diaphragmatic breathing Comments inhale 4 counts exhale 4 coulnts withTA assist Pelvic floor long holds Supine Exercise Name Pelvic floor long holds Side bilateral Equipment Used no biofeeback today Reps/Minutes 10 second hold and 10 second relaxation Prone Exercises 1 Prone Exercise Name prone cobra stretch Reps/Minutes holding 30 seconds each leg Comments with alternating knee bend PT-OP-T Assessment and Plan Start: 01/16/20 13:04 Freq: Status: Active Protocol: Document 01/25/20 10:37 ON LICENSE OF [facility] (Rec: 01/25/20 12:54 ON LICENSE OF [facility] [id number]) Physical Therapy Assessment Goals Three Impairment Decreased endurance of the pelvic floor musculature Custodial Goal (LTG) Faustina is able to sustain a contraction of the pelvic floor for 10 seconds in supine and 5-10 seconds in a standing position for improved slow twitch muscle contraction ability Two Impairment weakness of the levator ani musculature Custodial Goal (LTG) Improve strength of all areas of the levator ani musculature to 3/5 MMT or better for improved support of the bladder and rectum LTG Duration 8 weeks One Impairment Urinary urgency voiding up to 3 times per hour Short Term Goal (STG) Faustina is educated in toileting strategies and urge deference technique to improve voiding ability to fully empty her bladder and reduce urgency STG Duration 2 weeks Custodial Goal (LTG) Ori is able to reduce her urgency and void 1 time every 1 1/2 to 2 hours LTG Duration 8 weeks Assessment Summary Assessment pt is doing well with her exercise program and her symptoms of incontinence have been lessening. She will be out of town x 3 weeks and we will resume PT at that time Physical Therapy Plan Frequency and Duration Frequency of Treatment 1x/Week Duration of Treatment 8 Plan of Care Start Date 01/16/20 Plan of Care End Date 03/12/20 Therapeutic Interventions Therapeutic Interventions Home Exercise Program,Manual Therapy,Neuromuscular Re- education,Patient/Caregiver Education,Self-Care/Home Management,Soft Tissue Mobilization,Therapeutic Exercises Modalities Biofeedback Next Visit Focus/Plan Next Note Type Treatment Note Next Visit Plan Review exercises and progress to eccentrol control and coordination with templates on EMG biofeedback
--- NOTE | 2020-07-29 14:16 | PT.OPDS ---
Current Diagnoses Other specified disorders of muscle (01/25/20) Urge incontinence (01/25/20) Visit Care Team Role Provider Type Isabelle Rosales DO Attending Provider Physician Primary Care Provider Referring Provider Specialty: [facility] Address: [address] [place] [address], [address], [address] Email: [email or web address] Visit Number Visit Number 4 Discharge Summary PT-OP-B Current Condition Start: 01/16/20 13:04 Freq: Status: Active Protocol: Document 01/16/20 13:04 [facility] (Rec: 01/16/20 13:16 [facility] [id number]) Current Condition History of Current Condition Onset Date 2-3 years ago Current Complaints urinary and fecal leakage History of Current Condition Pt reports frequent urgency to void during the day. At times she can go up to 3 times per hour. She does note that while attempting to void if she sits for a while she will go more. SHe reports being diagnosed with parkinsons last June and started taking Levadopa at the same time. She recently began a extended release levodopa 200 mg and this has helped her to only wake up one time per night to void. Drinks a great deal of water and is getting in 8- 10 glasses per day. When she walks [facility] she has to stop to void. Also leaks with sneezing and positional changes. At times has bowel soilage. She will always clean her rectal sphincter when she voids. She denies any complaints of pelvic heaviness or pressure Treatment Goals Patient/Caregiver Goals Treatment goals include improving urinary continence and decreasing urgency. Pt would also like to improve rectal sphincter control Prior Functional Status Baseline Function- ADL's Independent Baseline Function- Mobility Independent Current Functional Impairments (Reported) Functional Limitations- Mobility/Gait limitations with walking distance due to frequency with voiding and urgency PT-OP-C Subjective Start: 01/16/20 13:04 Freq: Status: Active Protocol: Document 01/25/20 10:37 [facility] (Rec: 01/25/20 12:54 [facility] [id number]) OP-PT Subjective Patient Comments Patient Comments Doing much better and able to urge technique, leakage is so much better, still a little fecal soiling. She doesn't even get up in the night any more. PT-OP-F Manual Assessment Start: 01/16/20 13:04 Freq: Status: Active Protocol: Document 01/16/20 13:00 [facility] (Rec: 01/17/20 11:29 [facility] [id number]) Manual Assessments Soft Tissue Assessment Soft Tissue Mobility Assessment there is some myofascial tightness in the abdominal wall and suprapubic fascia surrounding the bladder PT-OP-I Pelvic Floor Start: 01/16/20 13:04 Freq: Status: Active Protocol: Document 01/16/20 13:00 [facility] (Rec: 01/17/20 11:29 [facility] [id number]) Pelvic Floor Assessment Urine Pelvic Floor Surgery No Urinary Symptoms Urge Sensation Other Urinary Symptoms frequency urgency to void, urinary leakage with light activity, strong urge to void and walking to the toilet Leakage Size Medium Leakage Cause Exercise,Urge Leaks Per Day 2 Voiding Frequency very frequencly and at times 3 per hour Nocturia yes 1-3 xms Pads Used In 24 Hours 3 Urine Pad Type Panty Liner Pelvic Clock Pelvic Clock 12-3 Atrophy Pelvic Clock 3-6 Atrophy Pelvic Clock 6-9 Atrophy Pelvic Clock 9-12 Atrophy Prolapse Uterine Prolapse Grade 1 Cystocele Grade 1 SEMG (uV) Baseline 2.8 10 Second Contraction 10 Recruitment Pattern Fair Relaxation Poor/Slow Holding Fair Stability of Hold Fair SEMG Stability of Rest Poor/Slow Contraction Ability Voluntary Contraction Weak Voluntary Relaxation Weak Manual Muscle Testing Left 2 Manual Muscle Testing Right 3 Manual Muscle Testing Anterior 2 Manual Muscle Testing Posterior 1 Muscle Endurance (Seconds) 6 Comments Pelvic Floor Comments pt had difficulty with any contraction from the posterior wall but with cuing was able to facilitate . She was able to contract the right lateral wall but had difficult with the left. PT-OP-M Strength Start: 01/16/20 13:04 Freq: Status: Active Protocol: Document 01/16/20 13:00 [facility] (Rec: 01/17/20 11:29 [facility] [id number]) Trunk Strength Trunk Manual Muscle Testing Testing Position Supine Flexion 3 Fair Core Stabilization Decreased stabilization from the transverse abdominal musculature difficulty facilitating the transverse abdominal muscles PT-OP-T Assessment and Plan Start: 01/16/20 13:04 Freq: Status: Active Protocol: Document 07/29/20 14:14 [facility] (Rec: 07/29/20 14:16 [facility] [id number]) Physical Therapy Assessment Assessment Summary Assessment As of her last visit 01/25/20 Faustina was doing well with her HEP. Her symptoms of UI were lessening. She has not been seen since the covid 19 pandemic. She has not returned call to resume PT. Faustina will be Discharged at this time Physical Therapy Plan Discharge Physical Therapy Discharge Reasons No Longer Attending PT Discharge Comments DC PT at this time
== END 2020-07-30 10:53 ==
LOC: PHYS 10:30
PROVIDERS: PCP Family Medicine; Referring Provider Family Medicine; Visit Provider Family Medicine
DX: M62.89 Other specified disorders of muscle (principal); N39.41 Urge incontinence
CPT/HCPCS: 97110; 97161

== ENCOUNTER → 2020-04-01 10:04 | Outpatient (CLI) | payer MEDICARE, OTHER, SELFPAY ==
--- NOTE | 2020-04-01 10:08 | DI.US.S_ITS ---
PROCEDURE: US PERIPH VENOUS LOW EXTREM RT INDICATIONS: INNER THIGH CORDS TECHNIQUE: Real-time imaging, as well as color and pulse Doppler interrogation, were performed of the lower extremity deep veins from the inguinal ligament to the popliteal fossa. COMPARISON: None. FINDINGS: The common femoral, femoral and popliteal veins are normally compressible, and free of intraluminal thrombus. Color and pulse Doppler demonstrate normal phasic intraluminal flow. There is normal augmentation response to distal compression maneuver. Additional, dedicated ultrasound scanning is performed at the area of palpable concern involving the inner thigh. No focal ultrasound abnormalities are seen within this region. IMPRESSION: Negative for deep venous thrombosis. No ultrasound abnormalities can be seen at the area of palpable concern involving the inner thigh. Dictated by: Kishan Chavez M.D. on 04/01/2020 at 12:14 Approved by: Kishan Chavez M.D. on 04/01/2020 at 12:15
== END ==
PROVIDERS: PCP Family Medicine; Referring Provider Family Medicine; Visit Provider Family Medicine
DX: M79.604 Pain in right leg (principal)
CPT/HCPCS: 93971

== ENCOUNTER → 2020-04-22 09:48 | Outpatient (CLI) | payer MEDICARE, OTHER, SELFPAY ==
[2020-04-22 11:09] LABS: Appearance Urine UA Slightly Cloudy; Color Urine UA ORANGE
[2020-04-22 11:10] LABS: Bacteria Urine Few (2-10); Culture Indicated Urine Specimen Cultured; RBC Urine 1-5/HPF (0-5/HPF); Squamous Epithelial Cell Urine 1-5 /HPF (0-5/HPF); WBC Urine 10-30/HPF (0-5/HPF)
== END ==
PROVIDERS: PCP Family Medicine; Referring Provider Student in an Organized Health Care Education/Training Program; Visit Provider Student in an Organized Health Care Education/Training Program
DX: R30.0 Dysuria (principal)
CPT/HCPCS: 81001; 87077; 87086; 87186

== ENCOUNTER → 2020-06-20 15:33 | Outpatient (CLI) | payer MEDICARE, OTHER, SELFPAY ==
--- NOTE | 2020-06-20 15:35 | DI.MG.S_ITS ---
BILATERAL DIGITAL SCREENING MAMMOGRAM 3D/2D WITH CAD: 06/20/2020 CLINICAL: Routine screening. Comparison is made to exams dated: 06/19/2019 mammogram, 06/14/2018 mammogram, and 05/20/2017 mammogram - [facility]. There are scattered fibroglandular elements in both breasts. Current study was also evaluated with a Computer Aided Detection (CAD) system. No significant masses, calcifications, or other findings are seen in either breast. There has been no significant interval change. IMPRESSION: NEGATIVE There is no mammographic evidence of malignancy. A 1 year screening mammogram is recommended. This exam was interpreted at Station ID: [id number]. NOTE: For mammograms, a report in lay terms will be sent to the patient. Approximately 15% of breast malignancies will not be visualized mammographically. In the management of a palpable breast mass, a negative mammogram must not discourage biopsy of a clinically suspicious lesion. Electronically Signed By: Ryan [email or web address]:06/20/2020 17:39:25 letter sent: Normal Exam ACR BI-RADS Category 1: Negative [id number]
== END ==
PROVIDERS: PCP Family Medicine; Referring Provider Family Medicine; Visit Provider Family Medicine
DX: Z12.31 Encounter for screening mammogram for malignant neoplasm of breast (principal)
CPT/HCPCS: 77063; 77067

== ENCOUNTER → 2021-01-06 10:22 | Outpatient (CLI) | payer MEDICARE, OTHER, SELFPAY ==
--- NOTE | 2021-01-06 | DI.US.S_ITS ---
PROCEDURE: US PELVIC COMPLETE INDICATIONS: PELVIC CONGESTION TECHNIQUE: Real-time scanning was performed of the pelvic organs, with image documentation. Additional endovaginal scanning was necessary due to incomplete visualization of the adnexal and endometrial structures by transabdominal scanning. COMPARISON: None. FINDINGS: Uterus: Uterus is normal in size at 7.9 x 4.9 x 3.3 cm. The uterus demonstrates a heterogeneous appearance. The endometrium measures 4 mm in combined thickness. There is a focal mildly hyperechoic lesion with associated increased vascularity involving the mid endometrial stripe anteriorly that measures up to 4 mm. Incidental note is made of nabothian cysts. Ovaries: The right ovary measures 1.8 x 1 x 1.1 cm. The left ovary measures 2.7 x 1.2 x 1.5 cm. The ovaries demonstrate small follicles, which are not viewed with suspicion. Other: No pathologic free abdominal or pelvic fluid. In this patient with this given history, scrutiny is given to the pelvic vessels. No abnormal pelvic vascularity can be seen. IMPRESSION: No abnormal pelvic vessels can be seen to confirm a diagnosis of pelvic congestion syndrome. There is a 4 mm hyperechoic focus along the endometrial stripe. The clinical significance of this is uncertain in this patient, although differential diagnosis includes polyp, submucosal fibroid, and neoplasm. If clinically appropriate, a dedicated sonohysterogram could be considered for follow up. Dictated by: Kishan Chavez M.D. on 01/06/2021 at 10:39 Approved by: Kishan Chavez M.D. on 01/06/2021 at 10:43
== END ==
PROVIDERS: PCP Family Medicine; Referring Provider Family Medicine; Visit Provider Family Medicine
DX: N94.89 Other specified conditions associated with female genital organs and menstrual cycle (principal)
CPT/HCPCS: 76830; 76856

== ENCOUNTER → 2021-01-08 08:59 | Outpatient (CLI) | payer MEDICARE, OTHER, SELFPAY ==
[2021-01-08 10:24] LABS: Alanine Aminotransferase 9 IU/L (<35); Albumin 4.2 g/dL (3.5-5.0); Albumin Globulin Ratio 1.4 (1.0-2.8); Alkaline Phosphatase 55 U/L (38-126); Aspartate Aminotransferase 34 IU/L (14-36); BUN Creatinine Ratio 21.6 (6-22); Bilirubin Total 0.3 mg/dL (0.2-1.3); Blood Urea Nitrogen 16 mg/dL (7-17); Calcium 9.4 mg/dL (8.4-10.2); Carbon Dioxide 32 mmol/L (22-32); Chloride 104 mmol/L (98-107); Cholesterol 197 mg/dL (140-199); Estimated Glomerular Filt Rate > 60.0 mL/min (>60); Globulin 2.9 g/dL (1.7-4.1); Glucose 109 mg/dL (80-110); HDL Cholesterol 70 mg/dL (40-60); HEMOLYSIS < 15 (0-50); LDL Cholesterol Calculated 117 mg/dL (<100); Potassium 4.6 mmol/L (3.4-5.1); Sodium 138 mmol/L (137-145); Total Protein 7.1 g/dL (6.3-8.2); Triglycerides 51 mg/dL (35-150)
== END ==
PROVIDERS: PCP Family Medicine; Referring Provider Family Medicine; Visit Provider Family Medicine
DX: E66.9 Obesity, unspecified (principal); R73.03 Prediabetes
CPT/HCPCS: 36415; 80053; 80061

== ENCOUNTER → 2021-01-10 11:59 | Outpatient (CLI) | payer MEDICARE, OTHER, SELFPAY ==
[2021-01-10 14:17] LABS: NT-proBNP (BNP-Adult 18+) 23 pg/mL (<125)
== END ==
PROVIDERS: PCP Family Medicine; Referring Provider Family Medicine; Visit Provider Family Medicine
DX: I50.21 Acute systolic (congestive) heart failure (principal); R60.9 Edema, unspecified; G20 Parkinson's disease
CPT/HCPCS: 36415; 83880

== ENCOUNTER → 2021-01-14 14:24 | Outpatient (CLI) | payer MEDICARE, OTHER, SELFPAY ==
--- NOTE | 2021-01-14 14:26 | DI.CT.S_ITS ---
PROCEDURE: CT CHEST ABD PEL WO CON INDICATIONS: significant edema of extremities and face TECHNIQUE: After the administration of oral contrast, 5 mm thick sections acquired from the lung apices to the symphysis pubis. 5 mm thick coronal and sagittal reformats acquired, with additional 7 mm coronal MIP reformats through the lungs. For radiation dose reduction, the following was used: automated exposure control, adjustment of mA and/or kV according to patient size. COMPARISON: [facility], CT, IVP (ABD & PEL WWO CONTRAST), 09/20/2017, 12:49. FINDINGS: Image quality: Excellent. CHEST: Lungs and pleura: No acute pulmonary opacities. No pleural effusions or pneumothorax. Central and peripheral airways are patent are normal in caliber. Mediastinum: Heart size is normal. No pericardial effusion. There is mild coronary artery atherosclerosis. No mediastinal adenopathy by CT size criteria. Thoracic aorta and central pulmonary arteries are normal in size. Esophagus is normal in caliber. There is a small hiatal hernia. Chest wall: No axillary or supraclavicular adenopathy by size criteria. Thyroid gland is normal. ABDOMEN: Solid organs: Severe hepatic steatosis. Liver is normal in size. Gallbladder is normal. Pancreas is normal in contours. There is stranding around the pancreas consistent with pancreatitis. Spleen is normal in size. No adrenal nodules. Both kidneys are normal in size, without hydronephrosis or nephrolithiasis. Peritoneum and bowel: Small and large bowel loops are normal in caliber and wall thickness. There are scattered colonic diverticula. No CT findings to suggest acute diverticulitis. Normal appendix. No free fluid or air. Nodes and vessels: No retroperitoneal or mesenteric adenopathy by size criteria. Aorta and inferior vena cava are normal in size. Miscellaneous: No ventral hernias. PELVIS: Genitourinary: Bladder wall thickness is normal. Miscellaneous: No inguinal hernias or adenopathy. Bones: No suspicious bony lesions. No vertebral body compression fractures. Degenerative changes noted in thoracic and lumbar spine. IMPRESSION: 1. There is pancreatic stranding suspicious for pancreatitis. 2. Severe hepatic steatosis. 3. Diverticulosis without diverticulitis. 4. Small hiatal hernia. 5. Mild coronary artery atherosclerosis. Dictated by: Reed Sweeney M.D. on 01/14/2021 at 15:17 Approved by: Reed Sweeney M.D. on 01/14/2021 at 15:37
== END ==
PROVIDERS: PCP Family Medicine; Referring Provider Family Medicine; Visit Provider Family Medicine
DX: R60.0 Localized edema; G20 Parkinson's disease; K76.0 Fatty (change of) liver, not elsewhere classified; K57.90 Diverticulosis of intestine, part unspecified, without perforation or abscess without bleeding; K44.9 Diaphragmatic hernia without obstruction or gangrene; I25.10 Atherosclerotic heart disease of native coronary artery without angina pectoris
CPT/HCPCS: 71250; 74176

== ENCOUNTER 2021-01-14 22:31 | Emergency (ER) | payer MEDICARE, OTHER, SELFPAY ==
[2021-01-14 22:43] VITALS: BP 176/82; PULSE 100; RESP 16; TEMP 37; O2SAT 98; BMI 33.3
--- NOTE | 2021-01-14 22:53 | DI.US.S_ITS ---
PROCEDURE: US ABDOMEN LIMITED INDICATIONS: ACUTE PANCREATITIS TECHNIQUE: Real-time scanning was performed of the abdominal and retroperitoneal organs, with image documentation. COMPARISON: None. FINDINGS: Liver: Liver is normal in size. Increased liver parenchymal echotexture is seen without discrete hepatic lesion. Gallbladder: There is no gallstone. No gallbladder wall thickening or pericholecystic fluid. No sonographic Hutchinson sign. Biliary ducts: Intrahepatic bile ducts are non-dilated. Extrahepatic bile duct caliber measures 6.4 mm. Normal is 6-7 mm or less in diameter, or 10 mm or less post-cholecystectomy. Pancreas: Visualized portions of the pancreas are sonographically normal. IMPRESSION: 1. Severe hepatic steatosis. No discrete hepatic lesion. Normal appearing gallbladder. 2. No gross abnormality is seen in visualized portion of pancreas. No peripancreatic fluid collection. No discrepancies from preliminary reading. Dictated by: Gasper Llamas M.D. on 01/15/2021 at 9:05 Approved by: Gasper Llamas M.D. on 01/15/2021 at 9:11
--- NOTE | 2021-01-14 23:02 | ED.ABDPAIN ---
HPI - Abdominal Pain General Chief Complaint: Abdominal Pain Stated Complaint: sent by MD ? pancreatitis Time Seen by Provider: 01/14/21 22:38 Source: patient Mode of arrival: Ambulatory Limitations: no limitations History of Present Illness HPI narrative: 71-year-old female nonsmoker with history of Parkinson's, GERD and borderline diabetes presents at the request of her primary care provider. She has had complaint of swelling of her upper legs and upper abdomen for some time and during the very thorough evaluation she ended up having a CT scan as an outpatient today. The scan was performed here in noted inflammatory change around her pancreas consistent with pancreatitis and as a result she was sent here for further evaluation. She denies much in the way of abdominal pain but does state frequently with eating she gets which she refers to his reflux, he burning and gnawing pain in her upper abdomen. She is able to tolerate food and liquid without much difficulty. She denies vomiting. She has had no fever or chills. She denies any significant alcohol history. MD complaint: abdominal pain Onset (ago): day(s) Pain Consistency: intermittent Location: epigastric Severity: mild Quality: burning Radiation: none Relieving factors: nothing Exacerbating factors: eating Associated symptoms: other (bloating upper abdomen) Related Data Home Medications Medication Instructions Recorded Confirmed calcium carbonate-vitamin D3 1 tab PO QDAY #0 07/12/17 01/10/21 multivitamin [Multiple Vitamins] 1 tab PO QDAY #0 07/12/17 01/10/21 tumeric PO 01/05/19 01/10/21 carbidopa 25 mg-levodopa 100 mg 1 tab PO TID 09/06/19 01/10/21 tablet EHT Brain Formula PO DAILY 09/21/19 01/10/21 carbidopa ER 50 mg-levodopa 200 mg 1 tab PO BEDTIME 11/23/19 01/10/21 tablet,extended release cataplex PO 11/23/19 01/10/21 coenzyme Q10 300 mg capsule 300 mg PO DAILY 01/15/20 01/10/21 magnesium oxide See Rx Instructions PO BID tab 08/09/20 01/10/21 Previous Rx's Medication Instructions Recorded boric acid 1 cap VAGINAL BEDTIME #30 each 11/23/19 zolpidem 5 mg tablet 5 mg PO HSP #20 tab 09/27/20 cyclobenzaprine 10 mg tablet 10 mg PO BID PRN #180 tab 12/27/20 furosemide 20 mg tablet See Rx Instructions .ROUTE 01/14/21 .COMPLEX #90 tab pantoprazole [Protonix] 40 mg PO DAILY #14 tab 01/14/21 Allergies Allergy/AdvReac Type Severity Reaction Status Date / Time adhesive Allergy Mild RASH Verified 01/10/21 11:21 Review of Systems Constitutional Constitutional: Denies chills, Denies fatigue, Denies fever(s), Denies frequent falls, Denies lethargy and Denies weakness Eyes Eyes: Denies change in vision, Denies eye discharge, Denies irritation and Denies loss of vision ENT Ears, Nose, Mouth, and Throat: Denies change in voice, Denies dizziness, Denies neck pain, Denies sore throat and Denies throat swelling Cardiovascular Cardiovascular: Denies chest pain, Denies irregular heart rhythm, Reports leg edema, Denies lightheadedness, Denies palpitations, Denies dyspnea, Denies dyspnea on exertion and Denies orthopnea Respiratory Respiratory: Denies cough, Denies dyspnea, Denies dyspnea on exertion and Denies wheezing Gastrointestinal Gastrointestinal: Denies abdominal pain, Denies change in bowel habits, Reports heartburn, Denies diarrhea, Denies nausea and Denies vomiting Musculoskeletal Musculoskeletal: Denies neck pain and Denies numbness Integumentary/Breasts Skin/Breast: Denies pruritus, Denies erythema, Denies rash and Denies wounds Neurologic Neurologic: Denies behavioral changes, Denies confusion, Denies dizziness, Denies frequent falls, Denies loss of vision, Denies numbness and Denies weakness Psychiatric Psychiatric: Denies anxiety, Denies behavioral changes, Denies confusion, Denies depression, Denies homicidal ideation and Denies suicidal ideation Endocrine Endocrine: Denies fatigue, Denies flushing and Denies palpitations Hematologic/Lymphatic Hematologic/Lymphatic: Denies easy bruising Allergic/Immunologic Allergic/Immunologic: Denies urticaria, Denies throat swelling and Denies wheezing Patient History Medical History (Updated 01/14/21 @ 23:32 by Dayron Gómez DO) Abnormal Pap smear of cervix Borderline diabetes mellitus (04/02/16) Chickenpox DDD (degenerative disc disease) (~2013) Degeneration of intervertebral disc of lumbar region (10/04/14) Edema Endometriosis (~1976) Foot pain (~2013) Foot spasms Hyperlipidemia Iliotibial band syndrome affecting right lower leg (04/02/16) Measles Mumps Obesity Osteopenia (06/25/16) Parkinson's disease Restless leg syndrome Rotavirus infection Seasickness Seasonal allergies (~1960) Seborrheic keratosis (03/14/14) Shingles rash Tinnitus Surgical History Anesthesia Status post colonoscopy (01/14/07) Status post laparotomy Family History Father Age: 89 CAD (coronary artery disease) Hyperlipidemia Diabetes mellitus Hypertension Glaucoma Grandfather Prostate cancer Heart disease Mother Age: 89 Osteoporosis DVT, lower extremity Polymyalgia rheumatica Grandfather Cancer Grandmother Diabetes mellitus Hypothyroid High cholesterol Glaucoma Sister Age: 67 Osteoporosis Grandmother No problems noted. Social History Smoking Status: Never smoker Smoking Status: Never smoker Exam Narrative Exam Narrative: GENERAL: [71] year old patient appears stated age. Well-nourished, well-developed patient, in no obvious distress. HEAD: Atraumatic. Normocephalic. EYES: Pupils equal round and reactive. Extraocular motions intact. ENT: Moist mucous membranes Nose without bleeding, purulent drainage. Throat without erythema, tonsillar hypertrophy or exudate. Airway patent. NECK: Trachea midline. Non tender CARDIOVASCULAR: Regular rate and rhythm, mild murmur. . RESPIRATORY: Clear to auscultation. Breath sounds equal bilaterally. No wheezes, rales, or rhonchi. GASTROINTESTINAL: Abdomen soft, non-tender, nondistended. EXTREMITIES: Mild edema of thighs, no redness, warmth or pain BACK: Nontender without deformity or crepitance. No flank tenderness. NEURO: AOx3. SKIN: No rash or erythema of visible areas. No jaundice Initial Vital Signs Initial Vital Signs: Vital Signs Temperature 98.6 F 01/14/21 22:43 Pulse Rate 100 H 01/14/21 22:43 Respiratory Rate 16 01/14/21 22:43 Blood Pressure 176/82 H 01/14/21 22:43 Pulse Oximetry 98 01/14/21 22:43 Course Orders Ordered: ED Orders 01/14/21 22:53 US abdomen limited Stat 01/14/21 22:55 Complete Blood Count AUTO DIFF Stat Comprehensive Metabolic Panel Stat Lactate Dehydrogenase Stat Lipase Stat Discontinued Medications Sodium Chloride (Normal Saline 0.9%) 1,000 mls @ 1,000 mls/hr IV BOLUS ONE Stop: 01/14/21 23:52 Last Infusion: 01/14/21 23:53 Dose: 0 mls/hr Documented by: Admin: 01/14/21 23:09 Dose: 1,000 mls/hr Documented by: FRANCISCO Vital Signs Vital signs: Vital Signs - 8 hr 01/14/21 22:43 01/14/21 23:53 Temperature 98.6 F Pulse Rate 100 H 83 Respiratory Rate 16 17 Blood Pressure 176/82 H 135/70 Pulse Oximetry 98 98 MDM - Abdominal Pain Lab Data Result diagrams: 01/14/21 22:55 01/14/21 22:55 Labs: Lab Results 01/14/21 01/14/21 Range/Units 22:55 22:55 WBC 8.6 (4.5-11.0) X10^3/uL RBC 4.59 (4.0-5.2) X10^6/uL Hgb 14.0 (12.0-16.0) g/dL Hct 41.5 (36-46) % MCV 90.5 (80-100) fL MCH 30.5 (26-34) PG MCHC 33.6 (30-36) % RDW 13.6 (11.6-14.8) % Plt Count 260 (150-400) X10^3/uL Neut % (Auto) 52.3 (50-75) % Lymph % (Auto) 34.7 (25-40) % Evangeline % (Auto) 9.1 (3-14) % Eos % (Auto) 3.1 (2-4) % Baso % (Auto) 0.8 (0-2) % Neut # (Auto) 4500 (1663-5833) /uL Lymph # (Auto) 3000 (8254-6053) /uL Evangeline # (Auto) 800 (0-900) /uL Eos # (Auto) 300 (0-450) /uL Baso # (Auto) 100 (0-100) /uL Sodium 139 (137-145) mmol/L Potassium 3.9 (3.4-5.1) mmol/L Chloride 102 (98-107) mmol/L Carbon Dioxide 30 (22-32) mmol/L BUN 29 H (7-17) mg/dL Creatinine 0.84 (0.52-1.04) mg/dL Estimated GFR > 60.0 (>60) mL/min BUN/Creatinine Ratio 34.5 H (6-22) Glucose 109 (80-110) mg/dL Calcium 10.1 (8.4-10.2) mg/dL Total Bilirubin 0.3 (0.2-1.3) mg/dL AST 39 H (14-36) IU/L ALT 29 (<35) IU/L Alkaline Phosphatase 59 (38-126) U/L Lactate Dehydrogenase 508 (313-618) U/L Total Protein 7.9 (6.3-8.2) g/dL Albumin 4.4 (3.5-5.0) g/dL Globulin 3.5 (1.7-4.1) g/dL Albumin/Globulin Ratio 1.3 (1.0-2.8) Lipase 182 (23-300) U/L Imaging Data CT scan - abdomen/pelvis: Radiologist's Impression: [address] [id number] Scan ReportSigned Patient: Faustina Basurto MMR#: [id number]: 2Acct:[id number]/Sex: 71 / FDate of Service: 01/14/21Loc: CTAccession Number: [id number] Procedure: CT chest abd pel wo con Ordering Provider: Isabelle Rosales D.O. PROCEDURE: CT CHEST ABD PEL WO CON INDICATIONS: significant edema of extremities and face TECHNIQUE: After the administration of oral contrast, 5 mm thick sections acquired from the lung apices to the symphysis pubis. 5 mm thick coronal and sagittal reformats acquired, with additional 7 mm coronal MIP reformats through the lungs. For radiation dose reduction, the following was used: automated exposure control, adjustment of mA and/or kV according to patient size. COMPARISON: [facility], CT, IVP (ABD & PEL WWO CONTRAST), 09/20/2017, 12:49. FINDINGS: Image quality: Excellent. CHEST: Lungs and pleura: No acute pulmonary opacities. No pleural effusions or pneumothorax. Central and peripheral airways are patent are normal in caliber. Mediastinum: Heart size is normal. No pericardial effusion. There is mild coronary artery atherosclerosis. No mediastinal adenopathy by CT size criteria. Thoracic aorta and central pulmonary arteries are normal in size. Esophagus is normal in caliber. There is a small hiatal hernia. Chest wall: No axillary or supraclavicular adenopathy by size criteria. Thyroid gland is normal. ABDOMEN: Solid organs: Severe hepatic steatosis. Liver is normal in size. Gallbladder is normal. Pancreas is normal in contours. There is stranding around the pancreas consistent with pancreatitis. Spleen is normal in size. No adrenal nodules. Both kidneys are normal in size, without hydronephrosis or nephrolithiasis. Peritoneum and bowel: Small and large bowel loops are normal in caliber and wall thickness. There are scattered colonic diverticula. No CT findings to suggest acute diverticulitis. Normal appendix. No free fluid or air. Nodes and vessels: No retroperitoneal or mesenteric adenopathy by size criteria. Aorta and inferior vena cava are normal in size. Miscellaneous: No ventral hernias. PELVIS: Genitourinary: Bladder wall thickness is normal. Miscellaneous: No inguinal hernias or adenopathy. Bones: No suspicious bony lesions. No vertebral body compression fractures. Degenerative changes noted in thoracic and lumbar spine. IMPRESSION: 1. There is pancreatic stranding suspicious for pancreatitis. 2. Severe hepatic steatosis. 3. Diverticulosis without diverticulitis. 4. Small hiatal hernia. 5. Mild coronary artery atherosclerosis. Dictated by: Reed Sweeney M.D. on 01/14/2021 at 15:17 Approved by: Reed Sweeney M.D. on 01/14/2021 at 15:37 US - abdomen: Radiologist's Impression: No sonographic findings for cholelithiasis or acute choleycystitis. Heterogeneous liver parenchyma. MDM Narrative Medical decision making narrative: Patient with minimal symptoms, reassuring labs/vitals presents for further evlauation of pancreatitis noted on CT. She tolerates food and drink and has minimal pain. She does not drink and has no evidence of GB disease. She has elements consistent with GERD, but imaging notes possible pancreatitis. She meets no admission criteria. Return precautions given and questions answered to her apparent satisfaction. Discharge Plan Departure Patient Disposition: Home Clinical Impression: Acute pancreatitis Qualifiers: Pancreatitis type: unspecified pancreatitis type Acute pancreatitis complication: unspecified Qualified Code(s): K85.90 - Acute pancreatitis without necrosis or infection, unspecified Instructions: DI for Pancreatitis Activity Restrictions/Additional Instructions: You've been diagnosed with a mild case of pancreatitis based on today's CT, however, your labs are very reassuring. 1. Drink plenty of fluids with frequent small sips. 2. For the next 24 hours a clear liquid diet is advised. After that please employ a B.R.A.T. diet which would include bananas, rice, apples, toast and other mild food items. Beyond this please avoid fatty foods. 3. Please take medications as directed. Consider getting an over the counter acid school library media specialist like Nexium or Protonix (omperazole, esomeprazole) 4. Please follow-up with your doctor in the next 1-2 days. Call the office for an appointment. 5. Please return to the emergency Department for any worsening or persistent symptoms, such as increasing pain or fever. Prescriptions: New pantoprazole [Protonix] 40 mg tablet,delayed release (DR/EC) 40 mg PO DAILY Qty: 14 RF: 0 No Action multivitamin [Multiple Vitamins] 1 EACH tablet 1 tab PO QDAY Qty: 0 RF: 0 calcium carbonate-vitamin D3 500 MG/100 IU tablet,chewable 1 tab PO QDAY Qty: 0 RF: 0 zolpidem 5 mg tablet 5 mg PO HSP Qty: 20 RF: 1 cyclobenzaprine 10 mg tablet 10 mg PO BID PRN (Reason: muscle spasm) Qty: 180 RF: 1 furosemide 20 mg tablet See Rx Instructions .ROUTE .COMPLEX Qty: 90 RF: 0 tumeric PO RF: 0 carbidopa-levodopa 25-100 mg tablet 1 tab PO TID RF: 0 Co Q-10 300 mg capsule 300 mg PO DAILY RF: 0 EHT Brain Formula PO DAILY RF: 0 carbidopa-levodopa 50-200 mg tablet extended release 1 tab PO BEDTIME RF: 0 cataplex PO RF: 0 boric acid 600 mg capsule 1 cap vaginal BEDTIME Qty: 30 RF: 1 magnesium oxide 250 mg magnesium tablet See Rx Instructions PO BID RF: 0 Referrals: Isabelle Rosales DO [Primary Care Provider] -
[2021-01-14 23:05] LABS: Add Manual Diff / Slide Review NO; Basophils Absolute Auto 100 /uL (0-100); Basophils Percent Auto 0.8 % (0-2); Eosinophils Absolute Auto 300 /uL (0-450); Eosinophils Percent Auto 3.1 % (2-4); Hematocrit 41.5 % (36-46); Lymphocytes Absolute Auto 3000 /uL (1100-4500); Lymphocytes Percent Auto 34.7 % (25-40); Mean Corpuscular HGB Conc 33.6 % (30-36); Mean Corpuscular Hemoglobin 30.5 PG (26-34); Mean Corpuscular Volume 90.5 fL (80-100); Monocytes Absolute Auto 800 /uL (0-900); Monocytes Percent Auto 9.1 % (3-14); Neutrophils Absolute Auto 4500 /uL (1500-7000); Neutrophils Percent Auto 52.3 % (50-75); Platelet Count 260 X10^3/uL (150-400); Red Blood Cell Count 4.59 X10^6/uL (4.0-5.2); Red Cell Distribution Width 13.6 % (11.6-14.8); White Blood Cell Count 8.6 X10^3/uL (4.5-11.0)
[2021-01-14] MEDS: SODIUM CHLORIDE 0.9% 1,000 ML 1000 ML IV (23:09)
[2021-01-14 23:14] LABS: Alanine Aminotransferase 29 IU/L (<35); Albumin 4.4 g/dL (3.5-5.0); Albumin Globulin Ratio 1.3 (1.0-2.8); Alkaline Phosphatase 59 U/L (38-126); Aspartate Aminotransferase 39 IU/L (14-36); BUN Creatinine Ratio 34.5 (6-22); Bilirubin Total 0.3 mg/dL (0.2-1.3); Blood Urea Nitrogen 29 mg/dL (7-17); Calcium 10.1 mg/dL (8.4-10.2); Carbon Dioxide 30 mmol/L (22-32); Chloride 102 mmol/L (98-107); Estimated Glomerular Filt Rate > 60.0 mL/min (>60); Globulin 3.5 g/dL (1.7-4.1); Glucose 109 mg/dL (80-110); HEMOLYSIS < 15 (0-50); Lactate Dehydrogenase 508 U/L (313-618); Lipase 182 U/L (23-300); Potassium 3.9 mmol/L (3.4-5.1); Sodium 139 mmol/L (137-145); Total Protein 7.9 g/dL (6.3-8.2)
[2021-01-14 23:53] VITALS: BP 135/70; PULSE 83; RESP 17; O2SAT 98
== END 2021-01-14 23:55 | disposition home or self-care (01) ==
PROVIDERS: Emergency Provider Emergency Medicine; PCP Family Medicine
DX: K85.90 Acute pancreatitis without necrosis or infection, unspecified (principal); R10.13 Epigastric pain; M79.89 Other specified soft tissue disorders
CPT/HCPCS: 36415; 71250; 74176; 76705; 80053; 83615; 83690; 85025; 96360; 99283; 99284

== ENCOUNTER → 2021-01-17 10:14 | Outpatient (CLI) | payer MEDICARE, OTHER, SELFPAY ==
[2021-01-23 13:05] LABS: Urea Breath Test >18YRS Negative
== END ==
PROVIDERS: PCP Family Medicine; Referring Provider Family Medicine; Visit Provider Family Medicine
DX: K21.9 Gastro-esophageal reflux disease without esophagitis (principal); R12 Heartburn
CPT/HCPCS: 83013

== ENCOUNTER → 2021-01-17 12:18 | Outpatient (CLI) | payer MEDICARE, OTHER, SELFPAY ==
--- NOTE | 2021-01-17 12:20 | DI.US.S_ITS ---
PROCEDURE: US PERIP VENOUS LOW EXTREM BI INDICATIONS: painful cords inner thighs TECHNIQUE: Real-time imaging, as well as color and pulse Doppler interrogation, were performed of the deep veins of both legs from the inguinal ligament to the popliteal fossa. COMPARISON: [facility], , [facility] VENOUS LOW EXTREM RT, 04/01/2020, 12:49. FINDINGS: Right: The common femoral, femoral and popliteal veins are normally compressible, and free of intraluminal thrombus. Color and pulse Doppler demonstrate normal phasic intravascular flow. There is normal augmentation response to distal compression maneuver. Left: The common femoral, femoral and popliteal veins are normally compressible, and free of intraluminal thrombus. Color and pulse Doppler demonstrate normal phasic intravascular flow. There is normal augmentation response to distal compression maneuver. IMPRESSION: Negative for deep venous thrombosis. Dictated by: Kishan Chavez M.D. on 01/17/2021 at 12:26 Approved by: Kishan Chavez M.D. on 01/17/2021 at 12:26
== END ==
PROVIDERS: PCP Family Medicine; Referring Provider Family Medicine; Visit Provider Family Medicine
DX: I82.409 Acute embolism and thrombosis of unspecified deep veins of unspecified lower extremity; R60.9 Edema, unspecified; M79.652 Pain in left thigh; M79.651 Pain in right thigh; K21.9 Gastro-esophageal reflux disease without esophagitis; R12 Heartburn
CPT/HCPCS: 83013; 93970

== ENCOUNTER → 2021-02-11 15:47 | Outpatient (CLI) | payer MEDICARE, OTHER, SELFPAY ==
--- NOTE | 2021-02-11 15:48 | DI.ECHO.S_ITS ---
[place] [facility]---------+ [facility] +---------+ : : [address] : : : : [id number] : : : : Phone: [phone] Echocardiogram Report + + :Name: OSVALDO PADGETT Study Date: 02/11/2021 Height: 65 in : :[facility] ReadingLocation: Weight: 220 lb : : Gender: Female BSA: 2.1 m2 : :: 1950 Age: 71 yrs BP: 126/79 mmHg: :Reason For Study: SIGNIFICANT EDEMA OF EXTREMITIES AND FACE : :Ordering Physician: ELLEN, : :ALIA Performed By: Gris Milian : :Referring: ALIA HUGHES : + + Interpretation Summary The ejection fraction is estimated to be 60-65%. There is no significant valvular heart disease. Procedure: A two-dimensional transthoracic echocardiogram with color flow and Doppler was performed. The study quality was technically adequate. There is no prior echocardiogram noted for this patient. The patient was in sinus rhythm with heart rates between 64-85 bpm during the exam. Left Ventricle: The left ventricle is normal in size and wall thickness. The ejection fraction is estimated to be 60-65%. Left ventricular wall motion is normal. Diastolic parameters suggest probable normal left ventricular diastolic function and normal filling pressures. Right Ventricle: The right ventricle is normal in size and function. Atria: The left atrial size is normal. Right atrial size is normal. There is no Doppler evidence for an interatrial shunt. Mitral Valve: The mitral valve is normal in structure and function. There is trace mitral regurgitation. Aortic Valve: The aortic valve is trileaflet. The aortic valve opens well. There is no aortic valve stenosis. No aortic regurgitation is present. Tricuspid Valve: The tricuspid valve is normal in structure and function. No tricuspid regurgitation. Pulmonary artery pressures cannot be estimated because of the lack of a measurable TR jet velocity. Pulmonic Valve: The pulmonic valve leaflets are thin and pliable; valve motion is normal. There is trace pulmonic regurgitation. Great Vessels: The aortic root is normal size. The dimensions of the ascending aorta are normal. The inferior vena cava was not well visualized. Pericardium/ Pleura There is no pericardial effusion. There is no pleural effusion. MMode/2D Measurements & Calculations LVIDd: 4.3 cm LVOT diam: 2.0 cm LVIDs: 2.5 cm Ao root diam: 3.2 cm FS: 41.9 % asc Aorta Diam: 3.2 cm EPSS: 0.57 cm Ao Arch Diam (Prox Trans): 3.3 cm IVSd: 0.99 cm LVPWd: 0.81 cm LV grullon. diameter/BSA (cm/m^2): 2.1 LV sys. diameter/BSA (cm/m^2): 1.2 LA A2 area: 18.2 cm2 RA long axis: 4.7 cm LA A4 area: 14.7 cm2 RA area: 13.5 cm2 LA length (vol): 4.9 cm RA vol: 32.8 ml LA vol: 46.3 ml RA : 15.9 ml/m2 LA vol index: 22.5 ml/m2 RVD1 (basal): 2.4 cm TAPSE: 1.8 cm Doppler Measurements & Calculations Ao V2 max: 150.9 cm/sec LVOT Max Luca: 98.2 cm/sec Ao V2 mean: 105.0 cm/sec LV V1 max P.9 mmHg Ao max P.1 mmHg LV V1 VTI: 18.5 cm Ao mean P.0 mmHg LEONOR(I,D): 2.1 cm2 Ao V2 VTI: 27.6 cm LEONOR(V,D): 2.0 cm2 sev ratio: 0.67 LEONOR indexed to BSA (cm^2/m^2): 1.00 MV E max luca: 82.1 cm/sec PA V2 max: 89.0 cm/sec MV A max luca: 65.4 cm/sec PA V2 mean: 62.3 cm/sec MV E/A: 1.3 PA mean P.8 mmHg Med Peak E' Luca: 6.4 cm/sec PA pr(Accel): 19.1 mmHg E/E' med: 12.8 Lat Peak E' Luca: 6.5 cm/sec E/E' lat: 12.7 E/e' average: 12.8 MV dec time: 0.23 sec SV(LVOT): 56.8 ml Reading Physician:09:32 AM
== END ==
PROVIDERS: PCP Family Medicine; Referring Provider Family Medicine; Visit Provider Family Medicine
DX: R60.9 Edema, unspecified (principal); G20 Parkinson's disease
CPT/HCPCS: 93306

== ENCOUNTER → 2021-02-12 15:55 | Outpatient (CLI) | payer MEDICARE, OTHER, SELFPAY ==
[2021-02-12 17:00] LABS: Prothrombin Time 11.8 SECONDS (10.1-12.7)
[2021-02-12 17:15] LABS: Erythrocyte Sedimentation Rate 23 MM/HR (0-20)
[2021-02-12 17:21] LABS: BUN Creatinine Ratio 21.7 (6-22); Blood Urea Nitrogen 15 mg/dL (7-17); C-Reactive Protein Quant < 0.5 mg/dL (<1.0); Calcium 8.9 mg/dL (8.4-10.2); Carbon Dioxide 24 mmol/L (22-32); Chloride 103 mmol/L (98-107); Estimated Glomerular Filt Rate > 60.0 mL/min (>60); Glucose 105 mg/dL (80-110); Magnesium 2.3 mg/dL (1.6-2.3); Potassium 4.8 mmol/L (3.4-5.1); Sodium 139 mmol/L (137-145)
[2021-02-12 17:33] LABS: HEMOLYSIS 68 (0-50)
[2021-02-12 17:49] LABS: TSH w/ Reflex to FT4 0.88 uIU/mL (0.47-4.68)
== END ==
PROVIDERS: PCP Family Medicine; Referring Provider Family Medicine; Visit Provider Family Medicine
DX: K85.90 Acute pancreatitis without necrosis or infection, unspecified (principal); I10 Essential (primary) hypertension; R60.9 Edema, unspecified
CPT/HCPCS: 36415; 80048; 83735; 84443; 85610; 85651; 86140

== ENCOUNTER → 2021-04-25 14:16 | Outpatient (CLI) | payer MEDICARE, OTHER, SELFPAY ==
[2021-04-25 14:45] LABS: Add Manual Diff / Slide Review NO; Basophils Absolute Auto 0 /uL (0-100); Basophils Percent Auto 0.9 % (0-2); Eosinophils Absolute Auto 100 /uL (0-450); Eosinophils Percent Auto 2.1 % (2-4); Lymphocytes Absolute Auto 1800 /uL (1100-4500); Lymphocytes Percent Auto 32.2 % (25-40); Mean Corpuscular HGB Conc 33.4 % (30-36); Mean Corpuscular Hemoglobin 30.2 PG (26-34); Mean Corpuscular Volume 90.6 fL (80-100); Monocytes Absolute Auto 500 /uL (0-900); Monocytes Percent Auto 8.6 % (3-14); Neutrophils Absolute Auto 3100 /uL (1500-7000); Neutrophils Percent Auto 56.2 % (50-75); Platelet Count 269 X10^3/uL (150-400); Red Blood Cell Count 4.64 X10^6/uL (4.0-5.2); Red Cell Distribution Width 14.2 % (11.6-14.8); White Blood Cell Count 5.5 X10^3/uL (4.5-11.0)
[2021-04-25 14:56] LABS: Alanine Aminotransferase 11 IU/L (<35); Albumin 4.5 g/dL (3.5-5.0); Albumin Globulin Ratio 1.3 (1.0-2.8); Alkaline Phosphatase 71 U/L (38-126); Aspartate Aminotransferase 42 IU/L (14-36); BUN Creatinine Ratio 18.1 (6-22); Bilirubin Total 0.4 mg/dL (0.2-1.3); Blood Urea Nitrogen 15 mg/dL (7-17); C-Reactive Protein Quant < 0.5 mg/dL (<1.0); Calcium 9.7 mg/dL (8.4-10.2); Carbon Dioxide 26 mmol/L (22-32); Chloride 103 mmol/L (98-107); Estimated Glomerular Filt Rate > 60.0 mL/min (>60); Globulin 3.6 g/dL (1.7-4.1); Glucose 113 mg/dL (80-110); HEMOLYSIS < 15 (0-50); Lipase 155 U/L (23-300); Potassium 4.8 mmol/L (3.4-5.1); Sodium 138 mmol/L (137-145); Total Protein 8.1 g/dL (6.3-8.2)
== END ==
PROVIDERS: PCP Family Medicine; Referring Provider Family Medicine; Visit Provider Family Medicine
DX: I10 Essential (primary) hypertension (principal); G20 Parkinson's disease; K85.90 Acute pancreatitis without necrosis or infection, unspecified; R60.9 Edema, unspecified
CPT/HCPCS: 36415; 80053; 83690; 85025; 86140

== ENCOUNTER → 2021-06-05 08:47 | Outpatient (CLI) | payer MEDICARE, OTHER, SELFPAY ==
[2021-06-05 10:15] LABS: Alanine Aminotransferase 8 IU/L (<35); Albumin 4.2 g/dL (3.5-5.0); Albumin Globulin Ratio 1.4 (1.0-2.8); Alkaline Phosphatase 62 U/L (38-126); Aspartate Aminotransferase 36 IU/L (14-36); BUN Creatinine Ratio 22.7 (6-22); Bilirubin Total 0.4 mg/dL (0.2-1.3); Blood Urea Nitrogen 17 mg/dL (7-17); C-Reactive Protein Quant < 0.5 mg/dL (<1.0); Calcium 9.3 mg/dL (8.4-10.2); Carbon Dioxide 25 mmol/L (22-32); Chloride 106 mmol/L (98-107); Cholesterol 207 mg/dL (140-199); Estimated Glomerular Filt Rate > 60.0 mL/min (>60); Globulin 2.9 g/dL (1.7-4.1); Glucose 111 mg/dL (80-110); HDL Cholesterol 66 mg/dL (40-60); HEMOLYSIS < 15 (0-50); LDL Cholesterol Calculated 129 mg/dL (<100); Potassium 4.4 mmol/L (3.4-5.1); Sodium 140 mmol/L (137-145); Total Protein 7.1 g/dL (6.3-8.2); Triglycerides 60 mg/dL (35-150)
[2021-06-05 10:30] LABS: Vitamin D 25 Hydroxy (D3) 29.6 ng/mL (30.0-100.0)
[2021-06-05 10:48] LABS: Ferritin 44 ng/mL (11-264)
[2021-06-05 10:59] LABS: Erythrocyte Sedimentation Rate 14 MM/HR (0-20)
[2021-06-06 06:19] LABS: HBsAg Screen Negative (Negative); Hepatitis A Antibody IgM Negative (Negative); Hepatitis B Core Antibody IgM Negative (Negative); Hepatitis C Antibody 0.1 s/co ratio (0.0-0.9)
== END ==
PROVIDERS: PCP Family Medicine; Referring Provider Family Medicine; Visit Provider Family Medicine
DX: E66.9 Obesity, unspecified (principal); K75.81 Nonalcoholic steatohepatitis (NASH); M85.80 Other specified disorders of bone density and structure, unspecified site; E78.00 Pure hypercholesterolemia, unspecified; G20 Parkinson's disease; R76.8 Other specified abnormal immunological findings in serum; Z78.0 Asymptomatic menopausal state
CPT/HCPCS: 36415; 80053; 80061; 80074; 82306; 82728; 85651; 86038; 86140

== ENCOUNTER → 2021-07-09 10:52 | Outpatient (CLI) | payer MEDICARE, OTHER, SELFPAY ==
--- NOTE | 2021-07-09 | DI.MG.S_ITS ---
BILATERAL DIGITAL SCREENING MAMMOGRAM 3D/2D WITH CAD: 07/09/2021 CLINICAL: Routine screening. Comparison is made to exams dated: 06/20/2020 mammogram, 06/19/2019 mammogram, and 06/14/2018 mammogram - [facility]. There are scattered fibroglandular elements in both breasts. Current study was also evaluated with a Computer Aided Detection (CAD) system. No significant masses, calcifications, or other findings are seen in either breast. There has been no significant interval change. IMPRESSION: NEGATIVE There is no mammographic evidence of malignancy. A 1 year screening mammogram is recommended. This exam was interpreted at Station ID: [id number]. NOTE: For mammograms, a report in lay terms will be sent to the patient. Approximately 15% of breast malignancies will not be visualized mammographically. In the management of a palpable breast mass, a negative mammogram must not discourage biopsy of a clinically suspicious lesion. Electronically Signed By: Fer taveras/jyothi:07/09/2021 11:14:12 letter sent: Normal Exam ACR BI-RADS Category 1: Negative [id number]
== END ==
PROVIDERS: PCP Family Medicine; Referring Provider Family Medicine; Visit Provider Family Medicine
DX: Z12.31 Encounter for screening mammogram for malignant neoplasm of breast (principal)
CPT/HCPCS: 77063; 77067

== ENCOUNTER → 2021-08-25 12:51 | Outpatient (CLI) | payer MEDICARE, OTHER, SELFPAY ==
[2021-08-26 03:44] LABS: Hepatitis A Antibody Total Positive (Negative)
[2021-08-26 09:19] LABS: Hepatitis B Surf Ab Qualitativ Reactive (.)
== END ==
PROVIDERS: PCP Family Medicine; Referring Provider Family Medicine; Visit Provider Family Medicine
DX: K76.0 Fatty (change of) liver, not elsewhere classified (principal)
CPT/HCPCS: 36415; 86706; 86708

== ENCOUNTER → 2022-05-11 14:30 | Outpatient (CLI) | payer MEDICARE, OTHER, SELFPAY ==
[2022-05-11 15:09] LABS: Appearance Urine UA SL CLOUDY; Bilirubin Urine UA NEGATIVE (NEGATIVE); Color Urine UA YELLOW; Glucose Urine UA NEGATIVE (Negative); Ketones Urine UA NEGATIVE (NEGATIVE); Leukocyte Esterase Urine UA 1+ (NEGATIVE); Nitrite Urine UA POSITIVE (Negative); Occult Blood Urine UA 3+ (Negative); Protein Urine UA 1+ (Negative); Specific Gravity Urine UA 1.025 (1.000-1.035); Urobilinogen Urine UA 0.2 E.U./dL (0.2)
[2022-05-11 15:21] LABS: RBC Urine 10-30/HPF (0-5/HPF); Squamous Epithelial Cell Urine 1-5 /HPF (0-5/HPF); WBC Urine 30-100/HPF (0-5/HPF)
[2022-05-11 15:22] LABS: Bacteria Urine Few (2-10); Culture Indicated Urine Specimen Cultured
== END ==
PROVIDERS: PCP Pediatrics; Referring Provider Pediatrics; Visit Provider Pediatrics
DX: R30.0 Dysuria (principal); R31.9 Hematuria, unspecified
CPT/HCPCS: 36415; 81001; 87086

== ENCOUNTER → 2022-05-21 09:35 | Outpatient (CLI) | payer MEDICARE, OTHER, SELFPAY ==
[2022-05-21 10:44] LABS: Hemoglobin A1C% w Est Avg Glu 5.9 % (4.0-6.0)
[2022-05-21 10:59] LABS: Alanine Aminotransferase 10 IU/L (<35); Albumin 4.2 g/dL (3.5-5.0); Albumin Globulin Ratio 1.3 (1.0-2.8); Alkaline Phosphatase 64 U/L (38-126); Aspartate Aminotransferase 33 IU/L (14-36); Bilirubin Total 0.6 mg/dL (0.2-1.3); Blood Urea Nitrogen 19 mg/dL (7-17); Calcium 8.5 mg/dL (8.4-10.2); Carbon Dioxide 26 mmol/L (22-32); Chloride 105 mmol/L (98-107); Cholesterol 204 mg/dL (140-199); Estimated Glomerular Filt Rate > 60 mL/min (>60); Globulin 3.2 g/dL (1.7-4.1); Glucose 118 mg/dL (80-110); HDL Cholesterol 58 mg/dL (40-60); HEMOLYSIS < 15 (0-50); LDL Cholesterol Calculated 132 mg/dL (<100); Potassium 4.4 mmol/L (3.4-5.1); Sodium 138 mmol/L (137-145); Total Protein 7.4 g/dL (6.3-8.2); Triglycerides 69 mg/dL (35-150)
[2022-05-21 11:41] LABS: Add Manual Diff / Slide Review NO; Basophils Absolute Auto 0 /uL (0-100); Basophils Percent Auto 0.8 % (0-2); Eosinophils Absolute Auto 100 /uL (0-450); Eosinophils Percent Auto 2.1 % (2-4); Hematocrit 39.8 % (36-46); Hemoglobin 13.7 g/dL (12.0-16.0); Lymphocytes Absolute Auto 1800 /uL (1100-4500); Mean Corpuscular HGB Conc 34.5 % (30-36); Mean Corpuscular Volume 89.9 fL (80-100); Monocytes Absolute Auto 400 /uL (0-900); Monocytes Percent Auto 7.3 % (3-14); Neutrophils Absolute Auto 2800 /uL (1500-7000); Neutrophils Percent Auto 54.8 % (50-75); Platelet Count 214 X10^3/uL (150-400); Red Blood Cell Count 4.43 X10^6/uL (4.0-5.2); Red Cell Distribution Width 13.8 % (11.6-14.8); White Blood Cell Count 5.1 X10^3/uL (4.5-11.0)
[2022-05-21 12:03] LABS: Erythrocyte Sedimentation Rate 23 MM/HR (0-20)
[2022-05-21 12:09] LABS: Rheumatoid Factor < 8.6 IU/mL (<12.0)
[2022-05-21 12:22] LABS: Vitamin D 25 Hydroxy (D3) 35.3 ng/mL (30.0-100.0)
== END ==
PROVIDERS: PCP Pediatrics; Referring Provider Pediatrics; Visit Provider Pediatrics
DX: R73.03 Prediabetes (principal); E78.5 Hyperlipidemia, unspecified; E78.00 Pure hypercholesterolemia, unspecified; K76.0 Fatty (change of) liver, not elsewhere classified; R76.8 Other specified abnormal immunological findings in serum
CPT/HCPCS: 36415; 80053; 80061; 82306; 83036; 85025; 85651; 86430

== ENCOUNTER → 2022-05-26 11:12 | Outpatient (CLI) | payer MEDICARE, OTHER, SELFPAY ==
[2022-05-26 12:26] LABS: Appearance Urine UA SL CLOUDY; Bilirubin Urine UA NEGATIVE (NEGATIVE); Color Urine UA RED; Glucose Urine UA NEGATIVE (Negative); Ketones Urine UA NEGATIVE (NEGATIVE); Leukocyte Esterase Urine UA 3+ (NEGATIVE); Nitrite Urine UA POSITIVE (Negative); Occult Blood Urine UA 3+ (Negative); Protein Urine UA 2+ (Negative); Urobilinogen Urine UA 0.2 E.U./dL (0.2); pH Urine UA 6.5 (4.5-8.0)
[2022-05-26 12:47] LABS: Bacteria Urine Few (2-10); Culture Indicated Urine Specimen Cultured; RBC Urine >100/HPF (0-5/HPF); Squamous Epithelial Cell Urine 0-1 /HPF (0-5/HPF); WBC Urine 10-30/HPF (0-5/HPF)
== END ==
PROVIDERS: PCP Pediatrics; Referring Provider Pediatrics; Visit Provider Pediatrics
DX: R30.0 Dysuria (principal); R31.9 Hematuria, unspecified
CPT/HCPCS: 81001; 87077; 87086; 87186

== ENCOUNTER → 2022-07-03 14:06 | Outpatient (CLI) | payer MEDICARE, OTHER, SELFPAY | PROVIDERS: PCP Pediatrics; Referring Provider Pediatrics; Visit Provider Pediatrics | DX: Z13.820 Encounter for screening for osteoporosis (principal); M85.88 Other specified disorders of bone density and structure, other site; Z78.0 Asymptomatic menopausal state; G20 Parkinson's disease | CPT/HCPCS: 77080 ==

== ENCOUNTER → 2022-07-10 14:46 | Outpatient (CLI) | payer MEDICARE, OTHER, SELFPAY ==
--- NOTE | 2022-07-10 | DI.MG.S_ITS ---
BILATERAL DIGITAL SCREENING MAMMOGRAM 3D/2D WITH CAD: 07/10/2022 CLINICAL: Routine screening. Comparison is made to exams dated: 07/09/2021 mammogram, 06/20/2020 mammogram, and 06/19/2019 mammogram - [facility]. There are scattered fibroglandular elements in both breasts. Current study was also evaluated with a Computer Aided Detection (CAD) system. There is a focal asymmetry in the left breast at 1 o'clock middle depth. No other significant masses, calcifications, or other findings are seen in either breast. IMPRESSION: INCOMPLETE: NEEDS ADDITIONAL IMAGING EVALUATION The focal asymmetry in the left breast is indeterminate. Additional views with possible ultrasound are recommended. Based on the Tyrer Cuzick model (a risk assessment model) the patient's lifetime risk is 4.5% and her 10 year risk is 2.8%. According to the ACR, ACS, and NCCN guidelines, an annual breast MRI exam along with mammogram is recommended if the patient's lifetime risk is 20% or greater. This exam was interpreted at Station ID: [id number]. NOTE: For mammograms, a report in lay terms will be sent to the patient. Approximately 15% of breast malignancies will not be visualized mammographically. In the management of a palpable breast mass, a negative mammogram must not discourage biopsy of a clinically suspicious lesion. Electronically Signed By: Shea white/jyothi:07/10/2022 15:31:57 letter sent: Additional Imaging Needed ACR BI-RADS Category 0: Incomplete 3340F
== END ==
PROVIDERS: PCP Pediatrics; Referring Provider Pediatrics; Visit Provider Pediatrics
DX: Z12.31 Encounter for screening mammogram for malignant neoplasm of breast (principal)
CPT/HCPCS: 77063; 77067

== ENCOUNTER → 2022-07-20 13:28 | Outpatient (CLI) | payer MEDICARE, OTHER, SELFPAY ==
--- NOTE | 2022-07-20 | DI.MG.S_ITS ---
UNILATERAL LEFT DIGITAL DIAGNOSTIC MAMMOGRAM 3D/2D WITH ADDITIONAL VIEWS: 07/20/2022 CLINICAL: Additional evaluation requested from prior study. Comparison is made to exams dated: 07/10/2022 mammogram, 07/09/2021 mammogram, 06/20/2020 mammogram, and 06/19/2019 mammogram - [facility]. There are scattered areas of fibroglandular density in the left breast (category b / 25%-50% glandular tissue). There is a focal asymmetry in the left breast at 1 o'clock middle depth. No other significant masses or calcifications are seen in the breast. IMPRESSION: INCOMPLETE: NEEDS ADDITIONAL IMAGING EVALUATION The focal asymmetry in the left breast is indeterminate. A targeted ultrasound is recommended and will immediately follow. Based on the Tyrer Cuzick model (a risk assessment model) the patient's lifetime risk is 4.5% and her 10 year risk is 2.8%. According to the ACR, ACS, and NCCN guidelines, an annual breast MRI exam along with mammogram is recommended if the patient's lifetime risk is 20% or greater. This exam was interpreted at Station ID: [id number]. NOTE: For mammograms, a report in lay terms will be sent to the patient. Approximately 15% of breast malignancies will not be visualized mammographically. In the management of a palpable breast mass, a negative mammogram must not discourage biopsy of a clinically suspicious lesion. Electronically Signed By: Carlitos Cali M.D. slc/:07/20/2022 13:55:51 ACR BI-RADS Category 0: Incomplete [id number]
--- NOTE | 2022-07-20 13:30 | DI.US.S_ITS ---
LIMITED ULTRASOUND OF LEFT BREAST: 07/20/2022 CLINICAL: Additional evaluation requested from mammo study. Comparison is made to exams dated: 07/20/2022 mammogram, 07/10/2022 mammogram, 07/09/2021 mammogram, and 06/20/2020 mammogram - [facility]. Color flow and real-time ultrasound of the left breast 1-2 o'clock region were performed. Delaney scale images of the real-time examination were reviewed. There is a 0.4 cm x 0.3 cm x 0.3 cm oval cyst in the left breast at 1 o'clock middle depth 6 cm from the nipple. This oval cyst is hypoechoic. This correlates with mammography findings. There are related micro calcifications. Color flow imaging demonstrates that there is no vascularity present. IMPRESSION: PROBABLY BENIGN The 0.4 cm cyst in the left breast is consistent with a complicated cyst and is probably benign. A follow-up mammogram and an ultrasound in 6 months is recommended to demonstrate stability. Exam findings were conveyed to the patient. This exam was interpreted at Station ID: [id number]. Electronically Signed By: Carlitos Cali M.D. slc/:07/20/2022 14:20:34 letter sent: Followup Recommended Ultrasound BI-RADS: 3 Probably benign
== END ==
PROVIDERS: PCP Pediatrics; Referring Provider Family Medicine; Visit Provider Family Medicine
DX: R92.8 Other abnormal and inconclusive findings on diagnostic imaging of breast (principal); N60.02 Solitary cyst of left breast
CPT/HCPCS: 76642; 77065; G0279

== ENCOUNTER → 2022-09-16 18:16 | Outpatient (CLI) | payer MEDICARE, OTHER, SELFPAY ==
--- NOTE | 2022-09-16 18:23 | DI.MRI.S_ITS ---
PROCEDURE: MR HIP RT WO CON INDICATIONS: isolated R hip flexion weakness without pain TECHNIQUE: Noncontrast coronal T1 spin echo and STIR through the bony pelvis. Coronal and axial T2 fast spin echo with fat saturation, sagittal T1 spin echo, and oblique axial T2 fast spin echo with fat saturation through the hip. COMPARISON: None. FINDINGS: Image quality: Excellent. Bones and joints: Asymmetric right worse than left bilateral hip joint osteoarthritic changes are seen with superior joint space narrowing, subchondral sclerosis and small marginal osteophyte formation. No intraosseous lesions or fractures. No avascular necrosis of the femoral heads. The visualized lower lumbar spine appears normally aligned. Tendons and ligaments: Distal right gluteus medius and minimus tendinosis and low-grade partial-thickness tear at their insertion on greater trochanter is seen, without associated muscle atrophy. The nearby proximal iliotibial band also appears intact. The iliopsoas tendon appears intact, without adjacent bursal fluid collections or evidence for impingement syndrome. The origin of the hamstring tendon is intact at the ischial tuberosity, as well as the associated sacrotuberous ligament. The straight and reflected heads of the rectus femoris muscle origin appear intact, as well as the conjoint tendon. The ligamentum teres appears intact where visualized. Labrum and cartilage: Subtle signal abnormality and contour irregularity involving superior anterior labrum at 12 to 1 o'clock position is seen concerning for superior anterior labral tear. Oral head is seen. The alpha angle of the femur is within normal limits at less than 55 degrees. Soft tissues: Visualized muscles demonstrate normal bulk and internal signal. Quadratus femoris muscle demonstrates no internal edema to suggest ischiofemoral impingement. The proximal sciatic neurovascular bundle appears normal adjacent to the hamstring tendons. No free pelvic fluid. Bladder wall thickness is normal. Genitourinary structures and bowel loops appear normal where visualized. IMPRESSION: 1. Asymmetric mild to moderate right hip joint osteoarthritis. No fracture or dislocation. No marrow edema. No evidence of avascular necrosis. 2. Mild distal right gluteus medius and minimus tendinosis and low-grade partial-thickness tear at their insertions on greater trochanter. No other muscle or tendon signal abnormality is seen. 3. Suggestion of subtle superior anterior labral tear at 12 to 1 o'clock position. Dictated by: Gaspre Llamas M.D. on 09/17/2022 at 8:48 Approved by: Gasper Llamas M.D. on 09/17/2022 at 8:50
--- NOTE | 2022-09-16 18:23 | DI.MRI.S_ITS ---
PROCEDURE: MR LUMBAR SPINE WO CON INDICATIONS: isolated R hip flexion weakness TECHNIQUE: Noncontrast sagittal T1 spin echo and T2 fast echo, sagittal STIR, and T2 fast spin echo through the lumbar spine. In cases with scoliosis, additional coronal T2 fast spin echo may be performed. COMPARISON: [facility], , L-SPINE 2-3 VIEWS, 03/31/2013, 16:33. FINDINGS: Image quality: Excellent. Alignment and Curvature: There are 5 lumbar type vertebral bodies by plain film. There is loss of normal lumbar lordosis. 3 mm of retrolisthesis of L2 on L3. 2 mm of retrolisthesis of L3 on L4. Bone Marrow: Marrow is of normal overall signal. No acute vertebral body compression fractures. Minimal reactive signal throughout the endplates of the thoracolumbar spine. Spinal Cord: Conus medullaris terminates at the mid L1 level. Visualized cord demonstrates normal signal and size. Paraspinous Soft Tissues: No paravertebral masses. T12-L1: Mild disc height loss and desiccation. Mild diffuse disc bulge. Mild facet and ligamentum flavum hypertrophy. Mild canal stenosis. No foraminal stenosis. L1-L2: Mild disc desiccation and diffuse disc bulge. Mild facet and ligamentum flavum hypertrophy. Mild canal stenosis. Mild bilateral foraminal stenosis. L2-L3: Mild disc height loss and desiccation. Mild diffuse disc bulge. Mild bilateral facet and ligamentum flavum hypertrophy. Mild epidural lipomatosis. Mild canal stenosis. Mild bilateral foraminal stenosis. L3-L4: Moderate disc desiccation. Mild diffuse disc bulge. Mild bilateral facet hypertrophy. Mild canal stenosis. Mild bilateral foraminal stenosis. L4-L5: Moderate disc desiccation. Mild disc height loss and moderate diffuse disc bulge. Mild facet and ligamentum flavum hypertrophy. Mild canal stenosis. Moderate bilateral foraminal stenosis. L5-S1: Moderate disc desiccation. Mild disc height loss and diffuse disc bulge. Mild bilateral facet hypertrophy. Mild canal stenosis. Moderate bilateral foraminal stenosis. IMPRESSION: 1. Multilevel degenerative disc and facet disease, as well as ligamentum flavum hypertrophy and epidural lipomatosis. 2. Mild multilevel canal stenoses. 3. Multilevel foraminal stenoses, worst at L4-L5 and L5-S1, where there are moderate foraminal stenoses. Dictated by: Saud Grider M.D. on 09/17/2022 at 9:16 Approved by: Saud Grider M.D. on 09/17/2022 at 9:19
== END ==
PROVIDERS: PCP Family Medicine; Referring Provider Family Medicine; Visit Provider Family Medicine
DX: S76.011A Strain of muscle, fascia and tendon of right hip, initial encounter (principal); M16.11 Unilateral primary osteoarthritis, right hip; G20 Parkinson's disease; M48.061 Spinal stenosis, lumbar region without neurogenic claudication; M48.07 Spinal stenosis, lumbosacral region; R29.898 Other symptoms and signs involving the musculoskeletal system; M51.36 Other intervertebral disc degeneration, lumbar region; M51.37 Other intervertebral disc degeneration, lumbosacral region
CPT/HCPCS: 72148; 73721

== ENCOUNTER → 2022-09-17 15:51 | Outpatient (CLI) | payer MEDICARE, OTHER, SELFPAY ==
--- NOTE | 2022-09-17 15:55 | DI.MRI.S_ITS ---
PROCEDURE: MR FEMUR RT WO CON INDICATIONS: isolated R hip flexion weakness without pain TECHNIQUE: Noncontrast coronal and sagittal T1 spin echo and STIR; axial T1 spin echo and T2 fast spin echo with fat saturation through the right thigh. COMPARISON: [facility], , MR HIP RT WO CON, 09/16/2022, 18:50. FINDINGS: Image quality: Excellent. Bones: The visualized osseous structures show no marrow edema. No fracture or dislocation. No suspicious intraosseous lesion. Soft tissues: The scanned muscles demonstrate normal overall bulk and internal signal. Subcutaneous tissues appear normal as well. No soft tissue masses are present. IMPRESSION: No abnormality is seen in right thigh to account for patient's symptoms. Dictated by: Gasper lLamas M.D. on 09/18/2022 at 10:46 Approved by: Gasper Llamas M.D. on 09/18/2022 at 11:00
== END ==
PROVIDERS: PCP Family Medicine; Referring Provider Family Medicine; Visit Provider Family Medicine
DX: G20 Parkinson's disease (principal); R29.898 Other symptoms and signs involving the musculoskeletal system
CPT/HCPCS: 36415; 73718; 80048

== ENCOUNTER → 2022-09-17 17:03 | Outpatient (CLI) | payer MEDICARE, OTHER, SELFPAY ==
[2022-09-17 18:37] LABS: BUN Creatinine Ratio 23.2 (6-22); Blood Urea Nitrogen 16 mg/dL (7-17); Carbon Dioxide 23 mmol/L (22-32); Chloride 105 mmol/L (98-107); Estimated Glomerular Filt Rate > 60 mL/min (>60); Glucose 99 mg/dL (80-110); HEMOLYSIS 26 (0-50); Potassium 3.9 mmol/L (3.4-5.1); Sodium 141 mmol/L (137-145)
== END ==
PROVIDERS: PCP Family Medicine; Referring Provider Family Medicine; Visit Provider Family Medicine
DX: G20 Parkinson's disease (principal); R29.898 Other symptoms and signs involving the musculoskeletal system
CPT/HCPCS: 36415; 80048

== ENCOUNTER → 2023-03-12 11:17 | Outpatient (CLI) | payer MEDICARE, OTHER, SELFPAY ==
--- NOTE | 2023-03-12 | DI.US.S_ITS ---
LIMITED ULTRASOUND OF LEFT BREAST AND AXILLA: 03/12/2023 CLINICAL: Patient returns today to evaluate a focal asymmetry in the left breast. Comparison is made to exams dated: 03/12/2023 mammogram, 07/20/2022 ultrasound, 07/20/2022 mammogram, and 07/10/2022 mammogram - [facility]. Color flow ultrasound of the left breast axilla was performed on the areas of interest. Delaney scale images of the real-time examination were reviewed. There is a complex cyst with a thickened wall in the left breast at 1 o'clock middle depth. This cyst is hypoechoic but of mixed echogenicity with internal echoes. This correlates with mammography findings. There are related micro calcifications. IMPRESSION: SUSPICIOUS OF MALIGNANCY The oval complex cyst in the left breast is at a low suspicion for malignancy. An ultrasound guided biopsy is recommended. This exam was interpreted at Station ID: [id number]. SUMMARY: This was discussed with the patient by the radiologist at the time of the exam. Electronically Signed By: Shea white/:03/12/2023 12:14:18 letter sent: Biopsy Required Ultrasound BI-RADS: 4a Low suspicion for malignancy
--- NOTE | 2023-03-12 11:18 | DI.MG.S_ITS ---
UNILATERAL LEFT DIGITAL DIAGNOSTIC MAMMOGRAM 3D/2D: 03/12/2023 CLINICAL: Short term follow up for the left breast. Comparison is made to exams dated: 07/20/2022 ultrasound, 07/20/2022 mammogram, 07/10/2022 mammogram, and 07/09/2021 mammogram - [facility]. There are scattered areas of fibroglandular density in the left breast (category b / 25%-50% glandular tissue). There is a stable focal asymmetry in the left breast at 1 o'clock middle depth. This is seen in additional views. No other significant masses or calcifications are seen in the breast. IMPRESSION: INCOMPLETE: NEEDS ADDITIONAL IMAGING EVALUATION The stable focal asymmetry in the left breast is indeterminate. A targeted ultrasound of the left breast is recommended and will be performed immediately following this exam. Based on the Tyrer Cuzick model (a risk assessment model) the patient's lifetime risk is 4.3% and her 10 year risk is 2.9%. According to the ACR, ACS, and NCCN guidelines, an annual breast MRI exam along with mammogram is recommended if the patient's lifetime risk is 20% or greater. This exam was interpreted at Station ID: [id number]. NOTE: For mammograms, a report in lay terms will be sent to the patient. Approximately 15% of breast malignancies will not be visualized mammographically. In the management of a palpable breast mass, a negative mammogram must not discourage biopsy of a clinically suspicious lesion. Electronically Signed By: Shea Wall M.D. lk/:03/12/2023 11:47:27 ACR BI-RADS Category 0: Incomplete 3340F
== END ==
PROVIDERS: PCP Family Medicine; Referring Provider Family Medicine; Visit Provider Family Medicine
DX: R92.8 Other abnormal and inconclusive findings on diagnostic imaging of breast (principal); N60.02 Solitary cyst of left breast
CPT/HCPCS: 76642; 77065; G0279

== ENCOUNTER → 2023-04-21 12:27 | Outpatient (CLI) | payer MEDICARE, OTHER, SELFPAY ==
--- NOTE | 2023-04-21 | PATH_ITS ---
[facility] Accession Number: [id number] No. of containers..01 Tissue . 01 Material submitted: . breast - LEFT BREAST MASS 1:00 8CMFN . 01 Diagnosis: Left Breast Mass at 1 o'clock, 8 cm from Nipple: Benign breast parenchyma with features of fibrocystic change consisting of cystic dilatation of terminal ductules, usual ductal hyperplasia, apocrine metaplasia, and patchy stromal fibrosis. Pleomorphic calcifications are present and are associated with benign hyalinized stroma. Rare calcium oxalate crystals are present within cystically dilated ductules. MRV 04/29/2023 0958 Local . 01 Comment: Results discussed with Betsy, corporate scheduler and adminstrator for Dr. Bailey' care team, on 04/27/2023 at approximately 9:01 a.m. . As part of routine air quality engineer, this case was also reviewed by Dr. Mcmanus, who agrees with the interpretation. . 01 Electronically signed: . Estela Lemons MD, Pathologist NPI- [id number] . 01 Gross description: . Received one formalin-filled container, labeled with the patient's name and designated left breast mass 1 o'clock 8 cm FN. The specimen is received with a plastic filter in container, sample loose in container and consists of multiple portions of yellow-duong soft tissue which range in size from less than 0.1 cm to 0.7 x 0.5 x 0.4 cm. All fragments are totally submitted in one cassette. Possible collection date and time per requisition: 04/21/2023 at 1354. Total fixation time: Approximately 36 hours. ([id number]) /FRLizbeth 04/22/2023 2313 Local . 01 Pathologist provided ICD-10: N63.20 . 01 CPT . 974038 Performed at: 01 [facility] [address] [facility], [place], [place] [id number] MD Fer Narayanan MD Phone: [phone]
--- NOTE | 2023-04-21 12:31 | DI.US.S_ITS ---
ULTRASOUND GUIDED BIOPSY LEFT BREAST USING VACUUM DEVICE WITH MARKING DEVICE INSERTED AND POST DIGITAL MAMMOGRAPHIC IMAGIN04/21/2023 CLINICAL: Left breast mass. PATIENT CONSENT: Risks (minor bleeding, infection, vasovagal reaction and repeat procedure), benefits and alternatives were explained to the patient and written informed consent was obtained. Correlation is made to exams dated: 04/21/2023 mammogram, 03/12/2023 ultrasound, 03/12/2023 mammogram, 07/20/2022 ultrasound, 07/20/2022 mammogram, and 07/10/2022 mammogram - [facility]. An ultrasound guided biopsy using real-time ultrasound was performed for the 0.5 cm oval cyst located in the left breast at 1 o'clock middle depth 8 cm from the nipple. This was described on the previous ultrasound report. The skin was prepped in the usual manner. Local anesthetic was administered to the access site. A skin shawna was made in the breast. The abnormality was approached from the lateral aspect. A 13 gauge biopsy needle was placed adjacent to the abnormality under ultrasound guidance. Once the needle was documented to be in the correct location, four cores were obtained using the Mammotome biopsy system. A celero clip was inserted into the biopsy cavity. A skin adhesive and a sterile dressing were applied to the access site. Post procedure digital mammographic imaging demonstrates the location device at the targeted area. The specimens were sent to the laboratory for pathological analysis. IMPRESSION: ULTRASOUND GUIDED BIOPSY BENIGN Ultrasound guided biopsy of the 0.5 cm cyst in the left breast at 1 o'clock middle depth 8 cm from the nipple was successful. Pathology indicates benign finding - fibrocystic changes, UDH, apocrine metaplasia, stromal fibrosis, benign calcifications and stroma. Pathology results are concordant with imaging findings. Recommend routine screening mammogram. This exam was interpreted at Station ID: [id number]. Carlitos Barrera M.D. [facility] [place],/:04/29/2023 12:01:44
--- NOTE | 2023-04-21 12:31 | DI.MG.S_ITS ---
UNILATERAL LEFT DIGITAL DIAGNOSTIC MAMMOGRAM 3D/2D POST-PROCEDURE IMAGING FOR MARKER PLACEMENT: 04/21/2023 CLINICAL: Left breast mass. Comparison is made to exams dated: 03/12/2023 mammogram, 07/20/2022 mammogram, 07/10/2022 mammogram, 07/09/2021 mammogram, 03/12/2023 ultrasound, and 04/21/2023 ultrasound biopsy - [facility]. There are scattered areas of fibroglandular density in the left breast (category b / 25%-50% glandular tissue). There is a celero marker clip in the appropriate position in the left breast at 1 o'clock middle depth at the biopsy site. IMPRESSION: POST PROCEDURE MAMMOGRAM FOR MARKER PLACEMENT There was a successful celero marker clip placement in the left breast middle depth. This exam was interpreted at Station ID: [id number]. Electronically Signed By: Carlitos Cali M.D. slc/:04/21/2023 17:48:46 ACR BI-RADS Category Post-procedure mammogram for marker placement
== END ==
PROVIDERS: PCP Family Medicine; Referring Provider Family Medicine; Visit Provider Family Medicine
DX: N60.82 Other benign mammary dysplasias of left breast (principal); N60.32 Fibrosclerosis of left breast
CPT/HCPCS: 19083; 77065

== ENCOUNTER → 2023-08-09 16:19 | Outpatient (CLI) | payer MEDICARE, OTHER, SELFPAY ==
--- NOTE | 2023-08-09 16:20 | DI.MG.S_ITS ---
BILATERAL DIGITAL SCREENING MAMMOGRAM 3D/2D WITH CAD: 08/09/2023 CLINICAL: Routine screening. Comparison is made to exams dated: 07/10/2022 mammogram, 07/09/2021 mammogram, and 06/20/2020 mammogram - [facility]. There are scattered areas of fibroglandular density in both breasts (category b / 25%-50% glandular tissue). Current study was also evaluated with a Computer Aided Detection (CAD) system. No significant masses, calcifications, or other findings are seen in either breast. There has been no significant interval change. IMPRESSION: NEGATIVE There is no mammographic evidence of malignancy. A 1 year screening mammogram is recommended. Based on the Tyrer Cuzick model (a risk assessment model) the patient's lifetime risk is 4.3% and her 10 year risk is 2.9%. According to the ACR, ACS, and NCCN guidelines, an annual breast MRI exam along with mammogram is recommended if the patient's lifetime risk is 20% or greater. This exam was interpreted at Station ID: [id number]. NOTE: For mammograms, a report in lay terms will be sent to the patient. Approximately 15% of breast malignancies will not be visualized mammographically. In the management of a palpable breast mass, a negative mammogram must not discourage biopsy of a clinically suspicious lesion. Electronically Signed By: Shea white/jyothi:08/10/2023 11:20:48 letter sent: Normal Exam ACR BI-RADS Category 1: Negative [id number]
== END ==
PROVIDERS: PCP Family Medicine; Referring Provider Family Medicine; Visit Provider Family Medicine
DX: Z12.31 Encounter for screening mammogram for malignant neoplasm of breast (principal)
CPT/HCPCS: 77063; 77067

== ENCOUNTER 2023-09-02 13:21 | Outpatient (RCR) | payer MEDICARE, OTHER, SELFPAY ==
--- NOTE | 2023-09-02 16:14 | PT.OIE ---
Current Diagnoses Parkinsonism, unspecified (09/02/23) Other abnormalities of gait and mobility (09/02/23) Past Medical History (Last Reviewed 08/09/23 @ 18:23 by Catina Jimenez PA-C) Abnormal Pap smear of cervix Borderline diabetes mellitus (04/02/16) Chickenpox COVID-19 virus infection DDD (degenerative disc disease) (~2013) Degeneration of intervertebral disc of lumbar region (10/04/14) Edema Endometriosis (~1976) Fall (on) (from) other stairs and steps, initial encounter Foot pain (~2013) Foot spasms Hyperlipidemia Iliotibial band syndrome affecting right lower leg (04/02/16) Impacted cerumen Lipedema Measles Mumps Obesity Osteopenia (06/25/16) Otitis externa Parkinson's disease (~06/2019) Pedal edema Restless leg syndrome Rotavirus infection Seasickness Seasonal allergies (~1959) Seborrheic keratosis (03/14/14) Shingles rash Tinnitus Tinnitus Past Surgical History (Last Reviewed 08/09/23 @ 18:23 by Catina Jimenez PA-C) Anesthesia Status post colonoscopy (01/14/07) Status post laparotomy Visit Care Team Role Provider Type Joaquina Bailey DO Attending Provider Physician Family Provider Primary Care Provider Referring Provider Specialty: Medical Address: [address] [place] [address], [address], [place], [facility] Email: [email or web address] Physical Therapy Initial Evaluation PT-OP-A Visit Information Start: 09/02/23 13:08 Freq: Status: Active Protocol: Document 09/02/23 15:55 ED (Rec: 09/02/23 16:14 ED [id number]) Out-Patient Physical Therapy Visit Information Visit Information Visit Type Initial Evaluation Visit Note 12/01 Visit Start Time 13:30 Visit Stop Time 14:30 Total Visit Minutes 60 Visit Number 1 PT-OP-B Current Condition Start: 09/02/23 13:08 Freq: Status: Active Protocol: Document 09/02/23 15:55 ED (Rec: 09/02/23 16:14 ED [id number]) Current Condition History of Current Condition Onset Date 2018 Current Complaints Parkinsons History of Current Condition Pt states that she was diagnosed with Parkinson's around 2018. She ambulates with trekking poles and a 4WW; she prefers the trekking poles. She reports having 5 falls in the past 2 weeks but thinks that a major reason for the reason falls was d/t Valium which she takes for muscle cramps; she is now going to start taking Valium only in the evenings. Pt and spouse state that they are leaving at the end of the month for [place]. She has taken classes for Parkinson's before and does the exercise frequently. She notes having freezing episodes especially when turning. Treatment Goals Patient/Caregiver Goals improve balance and strength PT-OP-C Subjective Start: 09/02/23 13:08 Freq: Status: Active Protocol: Document 09/02/23 15:55 ED (Rec: 09/02/23 16:14 ED [id number]) Patient Questionnaires ABC- Activity Specific Balance Confidence Scale ABC Score 570 / 1600 = 35.6 % ABC Functional Impairment 20 to <40% Impaired (Score 61- 80) PT-OP-D Balance Start: 09/02/23 13:08 Freq: Status: Active Protocol: Document 09/02/23 15:55 ED (Rec: 09/02/23 16:14 ED [id number]) OP-PT Balance Assessment Standing Balance Static Standing Balance Ability Good Balance Tests Semi-Tandem Standing Semi-Tandem Standing Balance 10 seconds Tandem Tandem Standing 10 seconds Shell Fall Scale Copyright Permission PT-OP-E Functional Tests Start: 09/02/23 13:08 Freq: Status: Active Protocol: Document 09/02/23 15:55 ED (Rec: 09/02/23 16:14 ED [id number]) Functional Tests 6 Minute Walk Test Distance 830 feet Device Used trekking poles Comments no seated rest breaks 30 Second Sit to Stand Test Score 7 Comments 21'' table height ; no UE assist Five Times Sit to Stand Test Score 28 seconds Comments 21'' table height; no UE assist Other SPPB Name of Test Short Physical Performance Battery Score 9/12 Comment balance: 1, 1, 2 ; speed: 4 seconds ; 5xSTS: 28 seconds PT-OP-T Assessment and Plan Start: 09/02/23 13:08 Freq: Status: Active Protocol: Document 09/02/23 15:55 ED (Rec: 09/02/23 16:14 ED [id number]) Physical Therapy Assessment Rehab Potential Rehabilitation Potential Good Evaluation Complexity Number of Personal Factors/Comorbidities 1-2 Number of Body Systems Impaired 3 Clinical Presentation at Evaluation Evolving Impairments Impairments Activity Tolerance,Balance, Coordination,Functional Activities,Functional Mobility ,Gait,Strength,Transfers Goals 6 MWT Impairment 6MWT Impairment IE: 830 feet with trekking poles Tungsten Tender Goal (LTG) Pt will improve 6MWT test >160 feet to a distasnce of >990 feet using trekking poles. LTG Duration 6 weeks SPPB Impairment SPPB Impairment 9/12 Intermediate Goal (LTG) Pt will improve SPPB to a score of 10/12 LTG Duration 6 weeks ABC scale Impairment 570 / 1600 = 35.6 % Intermediate Goal (LTG) Pt will improve ABC scale by > 13% to a score >48%. LTG Duration 6 weeks HEP Impairment HEP Short Term Goal (STG) Pt will report performing HEP >3 days/week. STG Duration 3 weeks Intermediate Goal (LTG) Pt will report performing HEP >3 days/week. LTG Duration 6-8 weeks Assessment Summary Assessment Pt reported to PT to improve balance, strength, and overall functional mobility. Pt has Parkinsons' disease and was diagnosed in 2018. She primarily ambulates using trekking poles but also uses a 4WW. Pt perform SPPB (short physical performance battery) and recorded a score of 9/12 ; a score <10 indicates risk of mobility disability. The SPPB is an evaluation of lower extremity functioning in older persons (contains 3 components: Balance test, Gait Speed test, and Chair Stand test). Pt also was below the sex and aged matched norms during 5x sit to stand and 30 second chair stand test indicating decreased LE strength. These values were expected as Parkinson's decreases an individual's overall functional mobility and work capacity. PT, patient and spouse spoke at length regarding regular physical activity with movements that are challenging and of large amplitude. PT provided HEP of : sit<>stands, fast rows, and resisted hip flexion movements which she was able to do comfortably today. Physical Therapy Plan Frequency and Duration Frequency of Treatment 2x/Week Duration of treatment (weeks) 10 Plan of Care Start Date 09/02/23 Plan of Care End Date 12/01/23 Therapeutic Interventions Therapeutic Interventions Gait Training,Home Exercise Program,Manual Therapy, Neuromuscular Re-education, Orthotic/Prosthetic Management ,Patient/Caregiver Education, Self-Care/Home Management,Soft Tissue Mobilization,Taping, Therapeutic Activities, Therapeutic Exercises Next Visit Focus/Plan Next Note Type Treatment Note Next Visit Plan HEP (sit<>stands, fast row, hip flexion) step ups, deadlift, ball slams , trampoline catch, NuStep HIIT
--- NOTE | 2023-09-02 16:14 | PT.OPPOC ---
Physical, Occupational & Speech Therapy At [facility] Current Diagnoses Parkinsonism, unspecified (09/02/23) Other abnormalities of gait and mobility (09/02/23) Visit Care Team Role Provider Type Joaquina Bailey DO Attending Provider Physician Family Provider Primary Care Provider Referring Provider Specialty: Medical Address: [address] [place] [address], [address], [place], [address] Email: [email or web address] Plan Of Care PT-OP-T Assessment and Plan Start: 09/02/23 13:08 Freq: Status: Active Protocol: Document 09/02/23 15:55 ED (Rec: 09/02/23 16:14 ED [id number]) Physical Therapy Assessment Rehab Potential Rehabilitation Potential Good Evaluation Complexity Number of Personal Factors/Comorbidities 1-2 Number of Body Systems Impaired 3 Clinical Presentation at Evaluation Evolving Impairments Impairments Activity Tolerance,Balance, Coordination,Functional Activities,Functional Mobility ,Gait,Strength,Transfers Goals 6 MWT Impairment 6MWT Impairment IE: 830 feet with trekking poles Jail Goal (LTG) Pt will improve 6MWT test >160 feet to a distasnce of >990 feet using trekking poles. LTG Duration 6 weeks SPPB Impairment SPPB Impairment 9/12 Plant Anatomist Goal (LTG) Pt will improve SPPB to a score of 10/12 LTG Duration 6 weeks ABC scale Impairment 570 / 1600 = 35.6 % Plant Anatomist Goal (LTG) Pt will improve ABC scale by > 13% to a score >48%. LTG Duration 6 weeks HEP Impairment HEP Short Term Goal (STG) Pt will report performing HEP >3 days/week. STG Duration 3 weeks Jail Goal (LTG) Pt will report performing HEP >3 days/week. LTG Duration 6-8 weeks Assessment Summary Assessment Pt reported to PT to improve balance, strength, and overall functional mobility. Pt has Parkinsons' disease and was diagnosed in 2018. She primarily ambulates using trekking poles but also uses a 4WW. Pt perform SPPB (short physical performance battery) and recorded a score of 9/12 ; a score <10 indicates risk of mobility disability. The SPPB is an evaluation of lower extremity functioning in older persons (contains 3 components: Balance test, Gait Speed test, and Chair Stand test). Pt also was below the sex and aged matched norms during 5x sit to stand and 30 second chair stand test indicating decreased LE strength. These values were expected as Parkinson's decreases an individual's overall functional mobility and work capacity. PT, patient and spouse spoke at length regarding regular physical activity with movements that are challenging and of large amplitude. PT provided HEP of : sit<>stands, fast rows, and resisted hip flexion movements which she was able to do comfortably today. Physical Therapy Plan Frequency and Duration Frequency of Treatment 2x/Week Duration of treatment (weeks) 10 Plan of Care Start Date 09/02/23 Plan of Care End Date 12/01/23 Therapeutic Interventions Therapeutic Interventions Gait Training,Home Exercise Program,Manual Therapy, Neuromuscular Re-education, Orthotic/Prosthetic Management ,Patient/Caregiver Education, Self-Care/Home Management,Soft Tissue Mobilization,Taping, Therapeutic Activities, Therapeutic Exercises Next Visit Focus/Plan Next Note Type Treatment Note Next Visit Plan HEP (sit<>stands, fast row, hip flexion) step ups, deadlift, ball slams , trampoline catch, NuStep HIIT Plan of Care Dates Plan of Care Start Date 09/02/23 Plan of Care End Date 12/01/23 Electronically Signed by: Brigido Quesada, PT 09/02/23 0461 If you are in agreement with this Plan of Care, please return a signed and dated copy. I have reviewed this Plan of Care and certify that the skilled therapy services above are required to meet the patient?s needs. Physician Signature Date Printed Name and Credentials Clinical Instructor Signature Printed Name and Credentials
--- NOTE | 2023-09-02 16:15 | PT.OPPOC ---
Physical, Occupational & Speech Therapy At [facility] Current Diagnoses Parkinsonism, unspecified (09/02/23) Other abnormalities of gait and mobility (09/02/23) Visit Care Team Role Provider Type Joaquina Bailey DO Attending Provider Physician Family Provider Primary Care Provider Referring Provider Specialty: Medical Address: [address] [place] [address], [address], [place], [address] Email: [email or web address] Plan Of Care PT-OP-T Assessment and Plan Start: 09/02/23 13:08 Freq: Status: Active Protocol: Document 09/02/23 15:55 ED (Rec: 09/02/23 16:14 ED [id number]) Physical Therapy Assessment Rehab Potential Rehabilitation Potential Good Evaluation Complexity Number of Personal Factors/Comorbidities 1-2 Number of Body Systems Impaired 3 Clinical Presentation at Evaluation Evolving Impairments Impairments Activity Tolerance,Balance, Coordination,Functional Activities,Functional Mobility ,Gait,Strength,Transfers Goals 6 MWT Impairment 6MWT Impairment IE: 830 feet with trekking poles Correction Goal (LTG) Pt will improve 6MWT test >160 feet to a distasnce of >990 feet using trekking poles. LTG Duration 6 weeks SPPB Impairment SPPB Impairment 9/12 Prison Keeper Goal (LTG) Pt will improve SPPB to a score of 10/12 LTG Duration 6 weeks ABC scale Impairment 570 / 1600 = 35.6 % Prison Keeper Goal (LTG) Pt will improve ABC scale by > 13% to a score >48%. LTG Duration 6 weeks HEP Impairment HEP Short Term Goal (STG) Pt will report performing HEP >3 days/week. STG Duration 3 weeks Correction Goal (LTG) Pt will report performing HEP >3 days/week. LTG Duration 6-8 weeks Assessment Summary Assessment Pt reported to PT to improve balance, strength, and overall functional mobility. Pt has Parkinsons' disease and was diagnosed in 2018. She primarily ambulates using trekking poles but also uses a 4WW. Pt perform SPPB (short physical performance battery) and recorded a score of 9/12 ; a score <10 indicates risk of mobility disability. The SPPB is an evaluation of lower extremity functioning in older persons (contains 3 components: Balance test, Gait Speed test, and Chair Stand test). Pt also was below the sex and aged matched norms during 5x sit to stand and 30 second chair stand test indicating decreased LE strength. These values were expected as Parkinson's decreases an individual's overall functional mobility and work capacity. PT, patient and spouse spoke at length regarding regular physical activity with movements that are challenging and of large amplitude. PT provided HEP of : sit<>stands, fast rows, and resisted hip flexion movements which she was able to do comfortably today. Physical Therapy Plan Frequency and Duration Frequency of Treatment 2x/Week Duration of treatment (weeks) 10 Plan of Care Start Date 09/02/23 Plan of Care End Date 12/01/23 Therapeutic Interventions Therapeutic Interventions Gait Training,Home Exercise Program,Manual Therapy, Neuromuscular Re-education, Orthotic/Prosthetic Management ,Patient/Caregiver Education, Self-Care/Home Management,Soft Tissue Mobilization,Taping, Therapeutic Activities, Therapeutic Exercises Next Visit Focus/Plan Next Note Type Treatment Note Next Visit Plan HEP (sit<>stands, fast row, hip flexion) step ups, deadlift, ball slams , trampoline catch, NuStep HIIT Plan of Care Dates Plan of Care Start Date 09/02/23 Plan of Care End Date 12/01/23 Electronically Signed by: Brigido Quesada, PT 09/02/23 2089 If you are in agreement with this Plan of Care, please return a signed and dated copy. I have reviewed this Plan of Care and certify that the skilled therapy services above are required to meet the patient?s needs. Physician Signature Date Printed Name and Credentials Clinical Instructor Signature Printed Name and Credentials
--- NOTE | 2023-09-10 15:41 | PT.OPDS ---
Current Diagnoses Parkinsonism, unspecified (09/02/23) Other abnormalities of gait and mobility (09/02/23) Visit Care Team Role Provider Type Joaquina Bailey DO Attending Provider Physician Family Provider Primary Care Provider Referring Provider Specialty: Medical Address: [address] [place] [address], [address], [place], [address] Email: [email or web address] Visit Number Visit Number 1 Discharge Summary PT-OP-B Current Condition Start: 09/02/23 13:08 Freq: Status: Active Protocol: Document 09/02/23 15:55 ED (Rec: 09/02/23 16:14 ED [id number]) Current Condition History of Current Condition Onset Date 2017 Current Complaints Parkinsons History of Current Condition Pt states that she was diagnosed with Parkinson's around 2018. She ambulates with trekking poles and a 4WW; she prefers the trekking poles. She reports having 5 falls in the past 2 weeks but thinks that a major reason for the reason falls was d/t Valium which she takes for muscle cramps; she is now going to start taking Valium only in the evenings. Pt and spouse state that they are leaving at the end of the month for [place]. She has taken classes for Parkinson's before and does the exercise frequently. She notes having freezing episodes especially when turning. Treatment Goals Patient/Caregiver Goals improve balance and strength PT-OP-C Subjective Start: 09/02/23 13:08 Freq: Status: Active Protocol: Document 09/02/23 15:55 ED (Rec: 09/02/23 16:14 ED [id number]) Patient Questionnaires ABC- Activity Specific Balance Confidence Scale ABC Score 570 / 1600 = 35.6 % ABC Functional Impairment 20 to <40% Impaired (Score 61- 80) PT-OP-D Balance Start: 09/02/23 13:08 Freq: Status: Active Protocol: Document 09/02/23 15:55 ED (Rec: 09/02/23 16:14 ED [id number]) OP-PT Balance Assessment Standing Balance Static Standing Balance Ability Good Balance Tests Semi-Tandem Standing Semi-Tandem Standing Balance 10 seconds Tandem Tandem Standing 10 seconds Shell Fall Scale Copyright Permission PT-OP-E Functional Tests Start: 09/02/23 13:08 Freq: Status: Active Protocol: Document 09/02/23 15:55 ED (Rec: 09/02/23 16:14 ED [id number]) Functional Tests 6 Minute Walk Test Distance 830 feet Device Used ThoroughCarekking poles Comments no seated rest breaks 30 Second Sit to Stand Test Score 7 Comments 21'' table height ; no UE assist Five Times Sit to Stand Test Score 28 seconds Comments 21'' table height; no UE assist Other SPPB Name of Test Short Physical Performance Battery Score / Comment balance: 1, 1, 2 ; speed: 4 seconds ; 5xSTS: 28 seconds PT-OP-T Assessment and Plan Start: 09/02/23 13:08 Freq: Status: Active Protocol: Document 09/10/23 15:40 ED (Rec: 09/10/23 15:41 ED [id number]) Physical Therapy Assessment Assessment Summary Assessment Pt states that they would like to be DC'd from PT at this time. They are moving to [place] for the winter and will not be able to come to PT starting next week. Will continue PT once in [place]. Physical Therapy Plan Discharge Physical Therapy Discharge Reasons No Longer Attending PT
== END 2023-09-13 14:39 | disposition home or self-care (01) ==
LOC: PHYS 13:21
PROVIDERS: Family Provider Family Medicine; PCP Family Medicine; Referring Provider Family Medicine; Visit Provider Family Medicine
DX: R26.89 Other abnormalities of gait and mobility (principal); G20.C Parkinsonism, unspecified
CPT/HCPCS: 97162

== ENCOUNTER → 2023-09-09 08:57 | Outpatient (CLI) | payer MEDICARE, OTHER, SELFPAY ==
--- NOTE | 2023-09-09 | DI.ECHO.S_ITS ---
[facility]---------+ [facility] +---------+ : : [address] : : : : [id number] : : : : Phone: [phone]+ Echocardiogram Report + + :Name: OSVALDO PADGETT Study Date: 09/09/2023 Height: 65 in : :[facility] ReadingLocation: Weight: 204 lb : : Gender: Female BSA: 2.0 m2 : :: 1950 Age: 73 yrs BP: 138/87 mmHg: :Reason For Study: EDEMA : :Ordering Physician: Ambrocio MORAformed By: Gris Milian : :Referring: LISANDRO MORA : + + Interpretation Summary Normal sinus rhythm with HR 56-65 bpm and occasional PVCs. Normal LV size and wall thickness; normal wall motion and LV systolic function. EF is 60-65%. Normal chamber sizes. No valve abnormalities. Compared to prior study 02/11/2021 no changes have occurred. Procedure: A two-dimensional transthoracic echocardiogram with color flow and Doppler was performed. The study quality was technically adequate. Comparison is made with the echocardiogram of 02/11/2021. The patient was in sinus bradycardia with heart rates between 56-65 bpm during the exam. Left Ventricle: The left ventricle is normal in size and wall thickness. The ejection fraction is estimated to be 55-60%. Right Ventricle: The right ventricle is normal in size and function. Atria: The left atrial size is normal. Right atrial size is normal. There is no Doppler evidence for an interatrial shunt. Mitral Valve: The mitral valve is normal in structure and function. There is mild mitral regurgitation. The mitral regurgitant jet is eccentrically directed. Aortic Valve: The aortic valve is trileaflet. The aortic valve opens well. The aortic valve is slightly calcified. There is no aortic valve stenosis. No aortic regurgitation is present. Tricuspid Valve: The tricuspid valve is normal in structure and function. No tricuspid regurgitation. Pulmonary artery pressures cannot be estimated because of the lack of a measurable TR jet velocity. Pulmonic Valve: The pulmonic valve leaflets are thin and pliable; valve motion is normal. There is mild pulmonic regurgitation. Great Vessels: The aortic root is normal size. The dimensions of the ascending aorta are normal. The IVC is of normal diameter and collapses greater than 50% with a sniff. This suggests a low right atrial pressure of 3 mm Hg. Pericardium/ Pleura There is no pericardial effusion. There is no pleural effusion. MMode/2D Measurements & Calculations LVIDd: 4.5 cm LVOT diam: 2.1 cm LVIDs: 2.8 cm Ao root diam: 3.1 cm FS: 36.9 % asc Aorta Diam: 3.2 cm EPSS: 0.29 cm Ao Arch Diam (Prox Trans): 3.2 cm IVSd: 0.87 cm LVPWd: 0.89 cm LV grullon. diameter/BSA (cm/m^2): 2.2 LV sys. diameter/BSA (cm/m^2): 1.4 LA A2 area: 15.8 cm2 RA long axis: 4.6 cm LA A4 area: 16.8 cm2 RA area: 13.7 cm2 LA length (vol): 4.7 cm RA vol: 34.5 ml LA vol: 48.4 ml RA : 17.3 ml/m2 LA vol index: 24.3 ml/m2 IVC diam: 1.6 cm RVD1 (basal): 3.8 cm TAPSE: 1.8 cm Doppler Measurements & Calculations Ao V2 max: 156.0 cm/sec LVOT Max Luca: 105.1 cm/sec Ao V2 mean: 112.8 cm/sec LV V1 max P.4 mmHg Ao max P.8 mmHg LV V1 VTI: 24.2 cm Ao mean P.5 mmHg LEONOR(I,D): 2.2 cm2 Ao V2 VTI: 37.6 cm LEONOR(V,D): 2.3 cm2 sev ratio: 0.64 LEONOR indexed to BSA (cm^2/m^2): 1.1 MV E max luca: 78.7 cm/sec PA V2 max: 78.8 cm/sec MV A max luca: 79.6 cm/sec PA V2 mean: 55.7 cm/sec MV E/A: 0.99 PA mean P.4 mmHg Med Peak E' Luca: 5.1 cm/sec PA pr(Accel): 32.8 mmHg E/E' med: 15.3 Lat Peak E' Luca: 7.0 cm/sec E/E' lat: 11.3 E/e' average: 13.3 MV dec time: 0.27 sec SV(LVOT): 82.7 ml Electronically signed by: Dalia Bosch M.D. on Reading Physician:09/10/2023 03:59 AM
== END ==
PROVIDERS: Family Provider Family Medicine; PCP Family Medicine; Referring Provider Family Medicine; Visit Provider Family Medicine
DX: G20.A1 Parkinson's disease without dyskinesia, without mention of fluctuations (principal); R60.9 Edema, unspecified; I49.3 Ventricular premature depolarization
CPT/HCPCS: 93306

== ENCOUNTER → 2024-05-26 10:22 | Outpatient (CLI) | payer MEDICARE, OTHER, SELFPAY ==
[2024-05-26 11:32] LABS: Hemoglobin A1C% w Est Avg Glu 5.6 % (4.0-6.0)
[2024-05-26 11:48] LABS: Alanine Aminotransferase 7 IU/L (<35); Albumin 4.4 g/dL (3.5-5.0); Albumin Globulin Ratio 1.3 (1.0-2.8); Alkaline Phosphatase 72 U/L (38-126); Aspartate Aminotransferase 30 IU/L (14-36); BUN Creatinine Ratio 21.6 (6-22); Bilirubin Total 0.6 mg/dL (0.2-1.3); Blood Urea Nitrogen 16 mg/dL (7-17); Carbon Dioxide 27 mmol/L (22-32); Chloride 107 mmol/L (98-107); Cholesterol 220 mg/dL (140-199); Estimated Glomerular Filt Rate > 60 mL/min (>60); Globulin 3.3 g/dL (1.7-4.1); Glucose 112 mg/dL (80-110); HDL Cholesterol 77 mg/dL (40-60); HEMOLYSIS < 15 (0-50); LDL Cholesterol Calculated 129 mg/dL (<100); Potassium 4.3 mmol/L (3.4-5.1); Sodium 142 mmol/L (137-145); Total Protein 7.7 g/dL (6.3-8.2); Triglycerides 72 mg/dL (35-150)
[2024-05-26 11:52] LABS: High Sensitivity CRP - Cardiac 5.3 mg/L (1.0-3.0)
[2024-05-26 12:09] LABS: Vitamin D 25 Hydroxy (D3) 38.5 ng/mL (30.0-100.0)
[2024-05-30 20:36] LABS: Magnesium, RBC 5.6 mg/dL (3.7-7.0)
== END ==
LOC: LAB 10:23
PROVIDERS: Family Provider Family Medicine; PCP Family Medicine; Referring Provider Family Medicine; Visit Provider Family Medicine
DX: E55.9 Vitamin D deficiency, unspecified (principal); G20.A1 Parkinson's disease without dyskinesia, without mention of fluctuations; R25.2 Cramp and spasm; K76.0 Fatty (change of) liver, not elsewhere classified
CPT/HCPCS: 36415; 80053; 80061; 82306; 83036; 83735; 86140

== ENCOUNTER → 2024-05-31 01:09 | Outpatient (ROUT) | payer MEDICARE, OTHER, SELFPAY ==
[2024-05-31 01:21] LABS: Bilirubin Urine UA NEGATIVE (NEGATIVE); Color Urine UA YELLOW; Glucose Urine UA NEGATIVE (Negative); Ketones Urine UA NEGATIVE (NEGATIVE); Leukocyte Esterase Urine UA TRACE (NEGATIVE); Nitrite Urine UA POSITIVE (Negative); Occult Blood Urine UA NEGATIVE (Negative); Protein Urine UA NEGATIVE (Negative); Urobilinogen Urine UA 0.2 E.U./dL (0.2)
[2024-05-31 01:34] LABS: Appearance Urine UA SL CLOUDY; pH Urine UA 5.5 (4.5-8.0)
[2024-05-31 01:35] LABS: Bacteria Urine Many (>30); RBC Urine None Seen (0-5/HPF); Squamous Epithelial Cell Urine 0-1 /HPF (0-5/HPF); Urine Volume 10mL (spun); WBC Urine 30-100/HPF (0-5/HPF)
[2024-05-31 01:36] LABS: Culture Indicated Urine Specimen Cultured
[2024-05-31 01:46] LABS: Creatinine Urine Random 122.93 mg/dL
[2024-05-31 01:50] LABS: Microalbumin Urine Random 2.5 mg/dL (0-1.6)
== END ==
PROVIDERS: Family Provider Family Medicine; PCP Family Medicine; Visit Provider Family Medicine
DX: R60.0 Localized edema (principal); R30.0 Dysuria
CPT/HCPCS: 81001; 82043; 82570; 87077; 87086; 87186

== ENCOUNTER → 2024-06-09 12:01 | Outpatient (CLI) | payer MEDICARE, OTHER, SELFPAY ==
[2024-06-09 13:53] LABS: Erythrocyte Sedimentation Rate 38 MM/HR (0-20)
[2024-06-09 15:04] LABS: BUN Creatinine Ratio 23.5 (6-22); Blood Urea Nitrogen 19 mg/dL (7-17); Carbon Dioxide 28 mmol/L (22-32); Chloride 105 mmol/L (98-107); Estimated Glomerular Filt Rate > 60 mL/min (>60); Glucose 111 mg/dL (80-110); HEMOLYSIS < 15 (0-50); Potassium 4.9 mmol/L (3.4-5.1); Sodium 140 mmol/L (137-145)
== END ==
PROVIDERS: Family Provider Family Medicine; PCP Family Medicine; Referring Provider Family Medicine; Visit Provider Family Medicine
DX: Z51.81 Encounter for therapeutic drug level monitoring (principal); Z79.899 Other long term (current) drug therapy; R76.8 Other specified abnormal immunological findings in serum; G20.A1 Parkinson's disease without dyskinesia, without mention of fluctuations
CPT/HCPCS: 36415; 80048; 85651

== ENCOUNTER → 2024-07-21 09:40 | Outpatient (CLI) | payer MEDICARE, OTHER, SELFPAY ==
[2024-07-21 13:20] LABS: BUN Creatinine Ratio 21.8 (6-22); Blood Urea Nitrogen 17 mg/dL (7-17); Calcium 9.8 mg/dL (8.4-10.2); Carbon Dioxide 28 mmol/L (22-32); Chloride 100 mmol/L (98-107); Estimated Glomerular Filt Rate > 60 mL/min (>60); Glucose 103 mg/dL (80-110); HEMOLYSIS < 15 (0-50); Potassium 3.9 mmol/L (3.4-5.1); Sodium 137 mmol/L (137-145)
== END ==
PROVIDERS: Family Provider Family Medicine; PCP Family Medicine; Referring Provider Family Medicine; Visit Provider Family Medicine
DX: E87.6 Hypokalemia (principal); T50.2X5A Adverse effect of carbonic-anhydrase inhibitors, benzothiadiazides and other diuretics, initial encounter
CPT/HCPCS: 36415; 80048